=== PATIENT | female | born 1970 | race Caucasian/White ===

== ENCOUNTER 2019-07-15 20:15 | Inpatient (IN) | payer SELFPAY ==
--- NOTE | 2019-07-15 21:07 | PC.NURSE ---
Patient arrived to 89 via stretcher from [facility] at [place] with complaints of CP. Patient requesting nicotene patch. This nurse explained to patient that physician would be in to see her and we would obtain orders for her. She was last seen for Bronchitis on the with medications given. Patient has taken all medications today. Requesting something to eat and drink. Dr. Barrios notified as told to do so by Dr. Mckeon. Awaiting orders. Patient denies pain. Haven't had any pain for awhile...don't know why I can't go home. Will monitor.
[2019-07-15 21:26] VITALS: BP 184/100; PULSE 72; RESP 27; TEMP 36.6; O2SAT 100
[2019-07-15 21:27] VITALS: BMI 31.9
--- NOTE | 2019-07-15 21:29 | ECG_ITS ---
Measurements Intervals [place] Rate: 62 P: 33 LA: 157 QRS: 12 QRSD: 84 T: 14 QT: 390 QTc: 398 SINUS RHYTHM PROBABLE INFERIOR MYOCARDIAL INFARCTION [35 ms Q WAVE IN II/aVF], PROBABLY OLD No previous ECG available for comparison Electronically Signed On 07-16-2019 6:24:03 NET WASHER by Corinne Santa M.D. [id number]
[2019-07-15 22:02] LABS: Troponin(5th) Baseline 86 ng/mL (0-10)
[2019-07-15 22:10] LABS: NT Pro B Type Natriuretic Pept 150 pg/mL (0-125)
[2019-07-15] MEDS: acetaminophen 325 mg Tablet 650 MG PO (23:11)
--- NOTE | 2019-07-15 23:29 | ECG_ITS ---
Measurements Intervals [place] Rate: 66 P: 40 NM: 160 QRS: 8 QRSD: 84 T: 14 QT: 404 QTc: 424 SINUS RHYTHM POSSIBLE LEFT ATRIAL ENLARGEMENT [-0.1mV P WAVE IN V1/V2] PROBABLE INFERIOR MYOCARDIAL INFARCTION [35 ms Q WAVE IN II/aVF], PROBABLY OLD No previous ECG available for comparison Electronically Signed On 07-16-2019 6:36:37 ED TEACHER by Corinne Santa M.D. [id number]
--- NOTE | 2019-07-15 23:34 | PC.NURSE ---
Tylenol given for neck pain. Patient states, I always have trouble with my neck and the beds here aren't that comfortable...not like being home. No other complaints voiced at this time. This nurse did explain to patient that she would be NPO after midnight for lab work and possibly other things. Voices understanding. Will monitor.
--- NOTE | 2019-07-15 23:57 | PM.HP ---
Providers/Chief Complaint Admitting Physician: Carley Barrios MD Primary Care Provider: Denies having a primary care provider, sees whoever she can get in with Chief Complaint: chest pain History of Present Illness Mignon A Young is a 49 year old female who presented to [facility] with chief complaint of chest pain. She actually describes having issues with chest pain off and on for about a year now. First time she remembers it happening was in July of last year. When she has episodes of pain it it starts out as a tightness in the center of her chest that then becomes a sharp pain with an aching type pain down her left arm. It is usually associated with either her getting upset or with exertion. Most of the time if she rests the pain will go completely away and she feels better. Today she was making up a bed when the pain came on. She had shortness of breath, palpitations and dizziness. She denied any diaphoresis, nausea, vomiting, syncope. She denies any problems with lower extremity edema, orthopnea or PND. Despite trying to lie down the pain did not relent and was described as severe. After 30 to 40 minutes she decided to go into the emergency room. Initial troponin was negative. EKG showed some sinus tachycardia without acute ST segment changes. 2-hour troponin showed a positive delta and request was made to transfer her here for further evaluation. At the present time patient is chest pain-free. She did receive Lovenox and Nitropaste at outside facility as well as aspirin and sublingual nitroglycerin. Was relieved with the initial doses of nitroglycerin. She reported that she felt like she was about to pass out with this event today and that is what made her family seek medical evaluation for it. For the last few weeks patient has had intermittent subjective fevers, cough, runny nose and earache. She was seen by Dr. Roberto Mckeon a few days ago and prescribed prednisone, cetirizine and azithromycin. Review of Systems Const: Reports: fever (Subjective, last week, none last couple of days), body aches and fatigue; Denies: chills or change in weight Eyes: Denies: change in vision ENMT: Reports: ear pain and nasal congestion; Denies: throat pain Card: Reports: chest pain and palpitations; Denies: edema Resp: Reports: shortness of breath, productive cough and non-productive cough; Denies: pain on inspiration or coughing up blood GI: Reports: heartburn/indigestion and other (Significant belching); Denies: abdominal pain, nausea, vomiting, diarrhea, constipation or blood in stool : Denies: difficulty urinating or urinary frequency Musc: Denies: joint pain, redness or joint warmth Skin/Breast: Reports: rash (On face) and chronic lesion (Chronic red scaly lesions on legs and scalp as well as in intertriginous areas the past year); Denies: itching Neuro: Reports: numbness in extremities (Both legs when she has pain in her chest); Denies: headache or weakness in extremities Psych: Denies: anxiety or depression Zach/Lymph: Denies: easy bruising or easy bleeding Medications/Allergies Home Medications Medication Instructions Recorded Confirmed Last Taken Type azithromycin [Zithromax] See Rx Instructions .ROUTE .COMPLEX 07/15/19 07/15/19 07/15/19 History cetirizine [Zyrtec] 10 mg PO DAILY 07/15/19 07/15/19 07/15/19 History prednisone See Taper PO 07/15/19 07/15/19 History Allergies Allergy/AdvReac Type Severity Reaction Status Date / Time bacitracin Allergy Unknown Verified 07/15/19 20:55 [From Triple Antibiotic] cephalexin [From Keflex] Allergy Unknown Verified 07/15/19 20:53 neomycin Allergy Unknown Verified 07/15/19 20:55 [From Triple Antibiotic] polymyxin B Allergy Unknown Verified 07/15/19 20:55 [From Triple Antibiotic] Additional Medication Information Additional Medication Information: Medications received at outside facility include at 3 PM aspirin 324 mg, nitroglycerin x2 doses sublingual between 3 and 330 PM, a liter of saline, an inch of Nitropaste around 640 PM, as well as a dose of Lovenox at 1621 PFSH Acute PFSH: Medical History Scoliosis Surgical History History of tubal ligation Family History (Updated 07/16/19 @ 03:22 by Carley Barrios MD) Father CAD (coronary artery disease) She describes him having either an angiogram with angioplasty or something more invasive Cancer Lung cancer Mother Irregular heart rhythm Other Diabetes Social History Smoking and tobacco status: current every day smoker Alcohol intake: current Alcohol intake frequency: few times a week Female Reproductive History: : 2 Para: 2 Vitals/I&O/Wt Last Vital Signs Temp 97.9 F 07/15/19 21:26 Pulse 72 07/15/19 21:26 Resp 27 H 07/15/19 21:26 BP 184/100 07/15/19 21:26 Pulse Ox 100 07/15/19 21:26 07/15/19 07/15/19 07/16/19 14:59 22:59 06:59 Intake Total 222 / 222 Balance 222 / 222 Weight last 48 hrs Weight 87.175 kg Physical Exam Const: COMMON NORMALS: oriented x3 and alert HENMT: HEAD & SCALP: normocephalic and atraumatic Eye: COMMON NORMALS: PERRL and EOMs intact bilaterally Neck/C-Spine: COMMON NORMALS: supple Resp: COMMON NORMALS: normal respiratory effort, no use of accessory muscles and clear to auscultation bilaterally Cardio: COMMON NORMALS: regular rate, no gallops, no murmurs and no rub GI: COMMON NORMALS: normal to inspection, nondistended, normoactive bowel sounds, soft to palpation and non-tender : COMMON NORMALS: Yes external appearance normal Extremity: COMMON NORMALS: no clubbing, cyanosis or edema and no calf tenderness RIGHT LOWER EXTREMITY: Yes knee joint Right knee: Yes inspection (no erythema), Yes palpation (No warmth) and Yes ROM (Normal) Neuro: COMMON NORMALS: moves all extremities and no sensory deficits noted Psych: COMMON NORMALS: thought process normal and cooperative Skin: NARRATIVE SKIN EXAM: Patient with macular hyperpigmented/erythematous areas with scaling throughout her scalp. Has similar lesions on both lower extremities. She has hyperpigmented/erythematous macular lesions without any scaling in all intertriginous areas (both axilla, under her breast and in the groin). Her face is mildly erythematous and dry in a malar distribution but also extends up onto her forehead. Remainder of skin is also dry. Data Other Labs: From outside facility: White count 14,000, hemoglobin 15, hematocrit 45, platelets 318, 86% neutrophils, 10% lymphocytes INR 0.9, PTT 35.2, CRP is 8.7, d-dimer 0.33 Sodium 136, potassium 4.2, chloride 97, CO2 26, calcium 9.3, BUN/creatinine 12/0.9, glucose 117, total protein 7.6, albumin 4.4, total bilirubin 0.2, alkaline phosphatase 84, AST and ALT are 17 and 15 respectively, lipase is 32, magnesium 2.3 Initial fifth generation troponin was 7 with the 2-hour troponin up to 34 giving a delta of 27 A&P Assessment and plan (1) Chest pain: Suspicious for unstable angina by description Status: Acute Qualifiers: Chest pain type: precordial pain Qualified Code(s): R07.2 - Precordial pain Code(s): R07.9 - Chest pain, unspecified (2) Non-STEMI (non-ST elevated myocardial infarction): Without a known history of coronary artery disease Status: Acute Code(s): I21.4 - Non-ST elevation (NSTEMI) myocardial infarction (3) Hypertension: Does not carry a chronic diagnosis noted to be hypertensive at outside facility as well as on arrival here Status: Acute Qualifiers: Hypertension type: unspecified Qualified Code(s): I10 - Essential (primary) hypertension Code(s): I10 - Essential (primary) hypertension (4) Nicotine dependence, cigarettes, with other nicotine-induced disorders: Status: Chronic Code(s): F17.218 - Nicotine dependence, cigarettes, with other nicotine-induced disorders Additional A&P Information Other diagnoses: --Dermatitis with currently unclear etiology. I actually think there may be a couple of different types of processes going on though could all be related. Differential includes fungal infection, psoriatic or other autoimmune process, among others. Seems less likely to be contact the physician she recently saw was hoping that the steroids would help with these wounds. --Frequent belching. Has been recommended to have an EGD but has not had coverage to be able to do this. Could be related to potential cardiac etiology or related to reflux or other abnormality in the esophagus. Plan: Inpatient admission Continue serial cardiac enzymes Echocardiogram Depending on clinical course tonight will consider stress testing or cardiology consultation for consideration of arteriogram Will go on and cover with aspirin, statin, nitroglycerin Continue treatment dose Lovenox which was started at outside facility Check hemoglobin A1c and lipid panel Add PPI and simethicone Lotrisone cream to skin lesions Nicotine patch and encouraged to quit smoking Would benefit from some further work-up for skin abnormalities and GI symptoms but primary focus of this admission is cardiac in nature. This was discussed with the patient. Supportive care otherwise Full code Attestations Medical Necessity Statement*: Anticipated stay greater than 2 midnights in this patient with chest pain symptoms of the been going on intermittently for about a year and escalated on the day of admission. She has slight abnormality and troponins but a concerning story for unstable angina. She also has some other abnormalities noted during history and on exam suggesting possible chronic medical conditions that are not diagnosed. She does not have a primary care provider with whom she can follow-up with. She does have risk factors including smoking and family history. Plans are as noted above. Coding Level of Care Code Acute Trailer Technician for Isis Matos Diagnoses Chest pain R07.2 Chest pain type: precordial pain Non-STEMI (non-ST elevated myocardial infarction) I21.4 Hypertension I10 Hypertension type: unspecified Nicotine dependence, cigarettes, with other nicotine-induced disorders F17.218
[2019-07-16] VITALS (53 sets, daily range): BP systolic 118–158; BP diastolic 66–110; PULSE 56–90; RESP 10–27; TEMP 36.8–37.2; O2SAT 94–100
[2019-07-16 00:17] LABS: Troponin 5 2HR 100.1 ng/mL (0-10); Troponin 5 2HR Delta 14.1 ABS# (0-10)
--- NOTE | 2019-07-16 02:02 | USCV_ITS ---
Mignon Escobar Age: 49 Gender: F : 1970 Exam Date: 07/16/2019 06:11 Ordering Phys: Carley Barrios MD Technologist: Reina Vera Exam Location: [facility] Indication: NSTEMI BP: / HR: 74 Rhythm: Sinus Technical Quality: Adequate MEASUREMENTS (Male / Female) Normal Values 2D ECHO LV Diastolic Diameter PLAX 4.1 cm 4.2 - 5.9 / 3.9 - 5.3 cm LV Systolic Diameter PLAX 2.7 cm LV Chamber Size 2.4 cm IVS Diastolic Thickness 1.3 cm 0.6 - 1.0 / 0.6 - 0.9 cm IVS Systolic Thickness 1.8 cm LVPW Diastolic Thickness 1.3 cm 0.6 - 1.0 / 0.6 - 0.9 cm LVPW Systolic Thickness 2.0 cm RV Chamber Size 1.9 cm LVOT Diameter 2.0 cm LV Ejection Fraction 2D Teich 61.9 % LV Ejection Fraction MOD 2C 31.5 % LV Ejection Fraction 2C AL 40.9 % LA Diameter 3.4 cm LA Width 2.5 cm LA Height 4.1 cm RA Width 3.2 cm RA Height 4.1 cm Aorta at Sinotubular Diameter 3.0 cm M-MODE LV Diastolic Diameter MM 4.3 cm 4.2 - 5.9 / 3.9 - 5.3 cm LV Systolic Diameter MM 2.8 cm LV Ejection Fraction MM Teich 64.0 % IVS Diastolic Thickness MM 1.0 cm 0.6 - 1.0 / 0.6 - 0.9 cm IVS Systolic Thickness MM 1.6 cm LVPW Diastolic Thickness MM 1.5 cm 0.6 - 1.0 / 0.6 - 0.9 cm LVPW Systolic Thickness MM 2.0 cm RV Diastolic Diameter MM 1.3 cm Aortic Annulus Diameter 3.5 cm LA Ao Ratio MM 1.0 MV E Point Septal Separation 0.5 cm DOPPLER AV Peak Velocity 135.0 cm/s LVOT Peak Velocity 105.0 cm/s AV Area Cont Eq vti 3.4 cm squared AV Area Cont Eq pk 2.6 cm squared MV Area PHT 3.7 cm squared Mitral E to A Ratio 1.0 MV E' Velocity 8.0 cm/s Mitral E to MV E' Ratio 10.6 Mitral E to LV E' Lateral Ratio 11.5 Mitral E to LV E' Septal Ratio 9.8 TR Peak Velocity 161.2 cm/s TR Peak Gradient 10.4 mmHg TR Mean Velocity 115.2 cm/s TR Mean Gradient 6.2 mmHg TR Velocity Time Integral 51.9 cm TV Peak E Velocity 54.0 cm/s Right Atrial Pressure 3.0 mmHg Pulmonary Artery Systolic Pressu 13.4 mmHg PV Peak Velocity 71.0 cm/s RV Acceleration Time 0.1 s RV Ejection Time 0.4 s RV AcT/ET 0.3 FINDINGS Left Ventricle Normal left ventricular size, systolic function and wall thickness, with no regional wall motion abnormalities. Left ventricular ejection fraction is estimated at 65%. Normal diastolic function. Right Ventricle Normal right ventricular size and systolic function. Right ventricular systolic pressure 13.4 mmHg. Right Atrium Normal right atrial size. Left Atrium Normal left atrial size. Mitral Valve Structurally normal mitral valve. No mitral valve stenosis. No mitral valve regurgitation. Aortic Valve Structurally normal trileaflet aortic valve. No aortic valve stenosis. No aortic valve regurgitation. Tricuspid Valve Structurally normal tricuspid valve. No tricuspid valve stenosis. Trace tricuspid valve regurgitation. Pulmonic Valve Structurally normal pulmonic valve. No pulmonary valve stenosis. Trace pulmonary valve regurgitation. Pericardium No pericardial effusion. Aorta Normal size aortic root and proximal ascending aorta. CONCLUSIONS 1. Normal left ventricular size, systolic function and wall thickness, with no regional wall motion abnormalities. Left ventricular ejection fraction is estimated at 65%. Normal diastolic function. 2. Normal right ventricular size and systolic function. 3. Significant valvular abnormality. 4. Normal pulmonary artery pressure. 5. No prior similar studies to compare. Corinne Santa MD (Electronically Signed) Final Date: 16 July 2019 12:52 S
--- NOTE | 2019-07-16 03:11 | PC.NURSE ---
Dr. Barrios in to see patient. Will monitor.
[2019-07-16] MEDS: atorvastatin 40 mg Tablet PO ×2 (03:23→21:31)
[2019-07-16] MEDS: calcium carbonate 500 mg Chew Tablet 1000 MG PO (03:26)
--- NOTE | 2019-07-16 03:29 | ECG_ITS ---
Measurements Intervals [place] Rate: 54 P: 37 PA: 152 QRS: 16 QRSD: 85 T: 16 QT: 423 QTc: 404 SINUS BRADYCARDIA LOW QRS VOLTAGE IN PRECORDIAL LEADS [QRS DEFLECTION < 1.0 mV IN CHEST LEADS] Non specific T wave abnormality No previous ECG available for comparison Electronically Signed On 07-16-2019 6:34:20 ENVIRONMENTAL GEOLOGIST by Corinne Santa M.D. [id number]
--- NOTE | 2019-07-16 03:32 | PC.NURSE ---
Patient sitting up in bed. Lipitor given as ordered. Patient belching. Patient requesting something for her stomach. The doctor was suppose to order me something for my stomach or she told me she would. Tums 1000mg given for patient's belching. Patient also requesting a nicotene patch. Dr. Barrios notified. Non productive, tight cough noted. Patient states, You know...it quits when I have my cigarette. Spoke with patient in regard to smoking cessation. Just not ready yet. Will monitor.
[2019-07-16 04:47] LABS: Blood Urea Nitrogen 14 mg/dL (6-20); Calcium 9.1 mg/dL (8.5-10.5); Carbon Dioxide 25 mmol/L (22-29); Chloride 99 mmol/L (98-107); Glomerular Filtration Rate 89.7 mL/min (90-130); Glucose 77 mg/dL (65-115); Osmolality Calculated 281 mOsm/kg (285-295); Sodium 138 mmol/L (136-145)
[2019-07-16] MEDS: nitroglycerin 1 gm/inch oint Pkt 1 INCH TOPICAL ×2 (05:23→22:37)
[2019-07-16] MEDS: enoxaparin 100 mg/mL Syringe 90 MG SUBCUT (05:24)
[2019-07-16] MEDS: nicotine 21 mg Patch 1 PATCH TRANSDERMA (05:24)
[2019-07-16 05:29] LABS: Chol HDL Ratio 6.89 mg/dL (0.0-4.40); Cholesterol 193 mg/dL (0-200); HDL Cholesterol 28 mg/dL (60-100); LDL Cholesterol Calculated 113 mg/dL (50-129); LDL HDL Ratio 4.04 RATIO (0.00-3.22); Triglycerides 258 mg/dL (0-150)
--- NOTE | 2019-07-16 05:56 | P.CONIM_ITS ---
Providers/Reason For Consult Consulting Physican/Specialty*: Dr. Santa, Cardiology Reason for Consult*: NSTEMI Attending Physician: Michaela Mckeon MD Primary Care Provider: Aleksandra Rowley History of Present Illness History of Present Illness Mignon Escobar is a 49 year old female with PMHx of hypertension and chronic active smoking with at least 59-ccom-aick history of smoking presented for evaluation of chest discomfort. She does not have any known medical history and does not take any medications at baseline. Does not have a primary care physician. She complains of having intermittent episodes of chest discomfort on and off for the past year. The episodes are usually brought about by exertion or emotional stress and are relieved on resting within 10 to 15 minutes. Yesterday she was under stress and started doing cleaning, while changing sheets she started having retrosternal chest discomfort graded at 5-6 over 10 in intensity with radiation to her left upper arm. The pain did not resolve on laying down and persisted for about 30 minutes that is when she called her and brought to [facility] ER. She also had associated dizziness and shortness of breath and palpitation. She denied any nausea vomiting or syncopal episodes. She was given Lovenox and Nitropaste and subsequently transferred to [facility] for further evaluation. Baseline troponin T of 86 that increased to 100 and 6 hr troponin I of 263. EKG here showed sinus rhythm with with possible old inferior myocardial infarction. No prior EKG available for comparison and no changes noted on serial EKGs. Overnight she has had intermittent episodes of chest pressure but denies having any chest pain. At the time of examination she complains of headache and neck pain but denies having any chest pain. She does mention that she used to work at [employer] and currently is unemployed. She has been sick with subjective fever chills and nasal congestion for the last week. +sick contact. She recently was seen for URI and was started on azithromycin Zyrtec and prednisone. Review of Systems Const: Reports: fever (Subjective) Eyes: Denies: change in vision ENMT: Reports: nasal discharge and nasal congestion; Denies: ear discharge Card: Reports: chest pain and palpitations; Denies: edema, syncope, pre-syncope or shortness of breath on exertion Resp: Reports: shortness of breath; Denies: productive cough, non-productive cough or coughing up blood GI: Denies: abdominal pain, nausea, vomiting or blood in stool : Denies: painful urination or blood in urine Musc: Reports: neck pain; Denies: extremity pain or extremity swelling Skin/Breast: Denies: rash or changing lesion Neuro: Reports: headache and dizziness; Denies: weakness in extremities, vertigo or slurred speech Psych: Denies: anxiety, depression or irritability Endo: Denies: tired all the time or change in body appearance Zach/Lymph: Denies: easy bruising or easy bleeding All/Imm: Denies: throat swelling or tongue swelling Meds/Allergies Home Medications and Allergies Home Medications Medication Instructions Recorded Confirmed Type azithromycin [Zithromax] See Rx Instructions .ROUTE .COMPLEX 07/15/19 07/15/19 History cetirizine [Zyrtec] 10 mg PO DAILY 07/15/19 07/15/19 History prednisone See Taper PO 07/15/19 History Allergies Allergy/AdvReac Type Severity Reaction Status Date / Time bacitracin Allergy Unknown Verified 07/15/19 20:55 [From Triple Antibiotic] cephalexin [From Keflex] Allergy Unknown Verified 07/15/19 20:53 neomycin Allergy Unknown Verified 07/15/19 20:55 [From Triple Antibiotic] polymyxin B Allergy Unknown Verified 07/15/19 20:55 [From Triple Antibiotic] Current Medications Current Medications Generic Name Dose Route Start Last Admin Trade Name Freq PRN Reason Stop Dose Admin Acetaminophen 650 mg 07/15/19 21:26 07/15/19 23:11 Tylenol PO 650 mg Q6H PRN Administration Mild/Mod Pain Or Temp >/= 101 Atorvastatin Calcium 40 mg 07/16/19 02:00 07/16/19 03:23 Lipitor PO 40 mg BEDTIME MADI Administration Calcium Carbonate 1,000 mg 07/15/19 21:26 07/16/19 03:26 Tums PO 1,000 mg Q4H PRN Administration DYSPEPSI Enoxaparin Sodium 90 mg 07/16/19 05:00 07/16/19 05:24 Lovenox 1 mg/kg (90 mg) 90 mg SUBCUT Administration Q12H [facility] Nicotine 1 patch 07/16/19 03:40 07/16/19 05:24 Nicoderm 21 Mg Patch TRANSDERMA 1 patch DAILY MDAI Administration Nitroglycerin 1 inch 07/16/19 05:00 07/16/19 05:23 Nitro-Bid TOPICAL 1 inch Q6H MADI Administration PFSH Acute PFSH: Medical History Scoliosis Surgical History History of tubal ligation Family History Father CAD (coronary artery disease) She describes him having either an angiogram with angioplasty or something more invasive Cancer Lung cancer Mother Irregular heart rhythm Other Diabetes Social History Smoking and tobacco status: current every day smoker Alcohol intake: current Alcohol intake frequency: few times a week Female Reproductive History: : 2 Para: 2 Vitals/I&O/Wt Last Vital Signs Temp 98.3 F 07/16/19 04:00 Pulse 56 L 07/16/19 04:00 Resp 21 H 07/16/19 04:00 BP 157/79 07/16/19 04:00 Pulse Ox 100 07/16/19 04:00 07/15/19 07/15/19 07/16/19 14:59 22:59 06:59 Intake Total 222 / 222 Balance 222 / 222 Weight last 48 hrs Weight 196 lb 4.8 oz Weight 192 lb 3 oz Physical Exam Const: COMMON NORMALS: no apparent distress, oriented x3 and alert GENERAL APPEARANCE: cooperative, comfortable, well kempt and well hydrated HENMT: COMMON NORMALS: normocephalic, head/scalp atraumatic, hearing grossly normal bilaterally, external ears normal, external nose normal and moist oral mucous membranes HEAD & SCALP: normocephalic and atraumatic FACE & SINUS: normal facial exam NOSE: external nose normal EXTERNAL EAR: Yes external ears normal Eye: COMMON NORMALS: PERRL, EOMs intact bilaterally, conjunctivae normal and no scleral icterus GENERAL EYE: normal appearance of both eyes ALIGNMENT: Yes alignment normal EYELID: eyelids normal CONJUNCTIVA: Yes conjunctivae normal SCLERA: sclerae normal PUPIL: Yes PERRL Neck/C-Spine: COMMON NORMALS: no lymphadenopathy, supple, no meningeal signs, no JVD and thyroid normal THYROID: thyroid normal CAROTIDS: Yes normal carotid upstroke CERVICAL SPINE: Yes cervical ROM normal Lymph: LYMPHATIC: no lymphadenopathy noted Chest: COMMONS NORMALS: inspection of chest normal and palpation of chest normal CHEST: Yes symmetrical chest wall rise, No mass, No tenderness, No scars and No rash BREAST/AXILLA INSPECTION: Yes normal inspection of the axillae Resp: COMMON NORMALS: clear to auscultation bilaterally and percussion normal AUSCULTATION: clear to auscultation bilaterally, no crackles, no rales, no rhonchi, no wheezes and vesicular breath sounds PERCUSSION: percussion normal Cardio: COMMON NORMALS: no JVD, regular rate, regular rhythm, S1 normal heart sound, S2 normal heart sound and peripheral pulses 2+ throughout PALPATION: normal PMI RATE: regular rate RHYTHM: regular rhythm HEART SOUNDS: S1 normal, S2 normal, no click, no gallops and no murmurs BRUITS: no abdominal aortic bruits, no carotid bruits, no femoral bruits and no renal bruits PERIPHERAL PULSES: pulses 2+ throughout, radial pulses present, femoral pulses present, posterior tibial pulses present and dorsalis pedis pulses present GI: COMMON NORMALS: soft to palpation and no hepatosplenomegaly AUSCULTATION: Yes normoactive bowel sounds PALPATION: Yes soft, No tender, No guarding, No rigid, Yes no hepatosplenomegaly, No pulsatile mass and No ascites present Extremity: GENERAL: No calf tenderness, No clubbing, No cyanosis, Yes edema and No pallor Neuro: COMMON NORMALS: oriented x3, CN's II-XII intact bilaterally, no focal motor deficits, no sensory deficits noted and gait normal SENSORIUM/ORIENTATION: Yes alert MENINGEAL SIGNS: Yes no meningeal signs Psych: COMMON NORMALS: thought process normal and speech normal APPEARANCE: Yes well kempt SPEECH: Yes normal speech MOOD & AFFECT: Yes euthymic mood THOUGHT PROCESS: normal thought process THOUGHT CONTENT: Yes normal thought content Skin: HAIR: normal NAILS: normal and no clubbing Data Labs: Other Labs: Laboratory Tests 07/15/19 07/15/19 07/15/19 21:43 21:43 23:35 GFR Calculation Calculated Osmolal ity Troponin I 6 Hour Troponin I Hi Sens Del Troponin T Baselin e 86 H Troponin T 120 Min cowlitz 100.1 H Delta Troponin T 14.1 H* NT-Pro-B Natriuret Pep 150 H Triglycerides Cholesterol LDL Cholesterol, C alc HDL Cholesterol 07/16/19 07/16/19 07/16/19 03:34 03:34 03:34 GFR Calculation 89.7 L Calculated Osmolal ity 281 L Troponin I 6 Hour 263.0 H Troponin I Hi Sens Del 177.0 H* Troponin T Baselin e Troponin T 120 Min [place] Delta Troponin T NT-Pro-B Natriuret Pep Triglycerides 258 H Cholesterol 193 LDL Cholesterol, C alc 113 HDL Cholesterol 28 L A&P Assessment and plan (1) Non-STEMI (non-ST elevated myocardial infarction): Patient has CAD risk factors of smoking and family history of CAD. -She received therapeutic Lovenox and was given aspirin 325 mg yesterday. She was started on Lipitor. -The case was discussed with Dr. Allen and plan is to proceed with coronary angiogram this morning. -Continue aspirin 325 mg and load with Plavix 600 mg. -follow-up on echocardiogram. Status: Acute Code(s): I21.4 - Non-ST elevation (NSTEMI) myocardial infarction (2) Hypertension: Blood pressure elevated on arrival here. No prior diagnosis of hypertension but patient has not seen a primary care physician for a long time. Status: Acute Qualifiers: Hypertension type: unspecified Qualified Code(s): I10 - Essential (primary) hypertension Code(s): I10 - Essential (primary) hypertension (3) Nicotine dependence, cigarettes, with other nicotine-induced disorders: Chronic active smoker. Advised on smoking cessation. Status: Chronic Code(s): F17.218 - Nicotine dependence, cigarettes, with other nicotine-induced disorders Consult Attestations Medical Necessity Statement: Patient needs hospital stay for management of non-ST elevation RI. 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
[2019-07-16 06:07] LABS: Estmated Average Glucose 105; Hemoglobin A1C 5.3 % (4.0-6.0)
--- NOTE | 2019-07-16 06:14 | PC.NURSE ---
Echocardiogram being performed at bedside. Will monitor.
--- NOTE | 2019-07-16 07:44 | P.PN_ITS ---
Subjective Subjective: Interval history: Chart reviewed, labs noted, delta (troponins) of 177. Echo done earlier this AM, pending report. NPO earlier for cath. Patient seen after cath, had stenting of proximal LAD. TR band in place. Had an episode of pre-syncope earlier upon her return, vitals stable. Medications: Reviewed: Yes Medication Review Details: Active Medications Generic Name Dose Route Start Last Admin Trade Name Freq PRN Reason Stop Dose Admin Acetaminophen 650 mg 07/15/19 21:26 07/15/19 23:11 Tylenol PO 650 mg Q6H PRN Administration Mild/Mod Pain Or Temp >/= 101 Al Hydrox/Mg [place] x/Simethicone 30 ml 07/16/19 03:36 Maalox PO Q4H PRN INDIGESTION Aspirin 325 mg 07/16/19 09:00 Aspirin Ec PO DAILY [facility] Atorvastatin Calci um 40 mg 07/16/19 02:00 07/16/19 03:23 Lipitor PO 40 mg BEDTIME [facility] Administration Azithromycin 250 mg 07/16/19 09:00 Zithromax PO 07/17/19 09:01 DAILY [facility] Protocol Betamethasone/Clot rimazole 1 applic 07/16/19 09:00 Lotrisone TOPICAL TID [facility] Bisacodyl 10 mg 07/15/19 21:26 Dulcolax PO DAILY PRN CONSTIPATION Calcium Carbonate 1,000 mg 07/15/19 21:26 07/16/19 03:26 Tums PO 1,000 mg Q4H PRN Administration DYSPEPSI Cetirizine HCl 10 mg 07/16/19 09:00 Zyrtec PO DAILY [facility] Clopidogrel Bisulf ate 75 mg 07/16/19 09:00 Plavix PO DAILY [facility] Enoxaparin Sodium 90 mg 07/16/19 05:00 07/16/19 05:24 Lovenox 1 mg/kg (90 mg) 90 mg SUBCUT Administration Q12H [facility] Nicotine 1 patch 07/16/19 03:40 07/16/19 05:24 Nicoderm 21 Mg P atch TRANSDERMA 1 patch DAILY [facility] Administration Nitroglycerin 0.4 mg 07/15/19 21:26 Nitrostat SUBLINGUAL Q5M PRN CHEST PAIN Nitroglycerin 1 inch 07/16/19 05:00 07/16/19 05:23 Nitro-Bid TOPICAL 1 inch Q6H MADI Administration Ondansetron HCl 4 mg 07/15/19 21:26 Zofran IVP Q8H PRN vomiting, or N/V if npo Pantoprazole Sodiu m 40 mg 07/16/19 09:00 Protonix PO DAILY MADI bacitracin [From Triple Antibiotic] Allergy (Verified 07/15/19 20:55) Unknown cephalexin [From Keflex] Allergy (Verified 07/15/19 20:53) Unknown neomycin [From Triple Antibiotic] Allergy (Verified 07/15/19 20:55) Unknown polymyxin B [From Triple Antibiotic] Allergy (Verified 07/15/19 20:55) Unknown Vitals/I&O/Wt Last Vital Signs Temp 98.3 F 07/16/19 04:00 Pulse 87 07/16/19 07:39 Resp 21 H 07/16/19 07:39 BP 151/76 07/16/19 07:39 Pulse Ox 99 07/16/19 07:39 07/15/19 07/16/19 07/16/19 22:59 06:59 14:59 Intake Total 222 / 222 Balance 222 / 222 Weight last 48 hrs Weight 89.04 kg Weight 87.175 kg Physical Exam Const: COMMON NORMALS: no apparent distress and oriented x3 GENERAL APPEARANCE: cooperative and comfortable NUTRITIONAL APPEARANCE: obese ORIENTATION/CONSCIOUSNESS: Yes awake HENMT: COMMON NORMALS: normocephalic, head/scalp atraumatic, hearing grossly normal bilaterally and moist oral mucous membranes HEAD & SCALP: normocephalic and atraumatic Eye: COMMON NORMALS: PERRL, EOMs intact bilaterally and conjunctivae normal CONJUNCTIVA: Yes conjunctivae normal PUPIL: Yes PERRL Neck/C-Spine: COMMON NORMALS: full ROM GENERAL: Yes normal visual inspection and Yes trachea midline Resp: COMMON NORMALS: normal respiratory effort, no retractions, no use of accessory muscles and clear to auscultation bilaterally EFFORT & INSPECTION: Yes able to speak in complete sentences, Yes symmetric chest movement and No tachypneic AUSCULTATION: clear to auscultation bilaterally Cardio: COMMON NORMALS: regular rate, regular rhythm, S1 normal heart sound, S2 normal heart sound and no murmurs RATE: regular rate RHYTHM: regular rhythm HEART SOUNDS: S1 normal and S2 normal GI: COMMON NORMALS: normal to inspection, nondistended, normoactive bowel sounds, soft to palpation and non-tender INSPECTION: Yes central obesity PALPATION: Yes soft Extremity: COMMON NORMALS: normal to inspection, full ROM and no clubbing, cyanosis or edema; negative for no pedal edema OTHER: TR band in place on RUE Neuro: COMMON NORMALS: oriented x3, moves all extremities, no focal motor deficits and no sensory deficits noted Psych: COMMON NORMALS: mental status grossly normal, thought process normal, cooperative, affect normal and speech normal SPEECH: Yes normal speech THOUGHT PROCESS: normal thought process Skin: COMMON NORMALS: no jaundice, no petechiae and no mottling OTHER: psoriatic lesions on bilateral legs, elbows, face with noted dry flaky skin Data : 07/16/19 03:34 07/16/19 03:34 A&P Assessment and plan (1) Non-STEMI (non-ST elevated myocardial infarction): -presented as exertional chest pain; risk factors for CAD are HTN, chronic smoker, obesity, +FHx -noted elevated troponins with positive delta of 177 -no acute ischemic changes noted on ECG -telemetry monitoring -ROBSON -on Plavix, statin, ASA, therapeutic Lovenox -Cardiology consult by Dr. Santa appreciated -noted lipid panel, A1c -Echo: EF=60%, no RWMA, trace TR, trace [place] -NPO for cath; had stenting of proximal LAD Status: Acute Code(s): I21.4 - Non-ST elevation (NSTEMI) myocardial infarction (2) Hypertension: -hypertensive overnight; BP better this AM -continue to monitor vital signs -will likely need oral antihypertensives added, none per home med list. Will add low dose BB Status: Acute Qualifiers: Hypertension type: unspecified Qualified Code(s): I10 - Essential (primary) hypertension Code(s): I10 - Essential (primary) hypertension (3) Nicotine dependence, cigarettes, with other nicotine-induced disorders: -chronic smoker -nicotine patch Status: Chronic Code(s): F17.218 - Nicotine dependence, cigarettes, with other nicotine-induced disorders Additional A&P Information -Obesity: BMI-33 kg/m2 -hx of psoriasis with noted dermatitis -recently treated for URI with course of prednisone and Azithromycin -GI ppx with PPI -DVT ppx not needed as on therapeutic Lovenox -Dispo: home -Code status: FULL code Attestations Medical Necessity Statement*: Patient requires hospitalization for continued management of NSTEMI, s/p cath with stenting of proximal LAD. Time Spent in Patient Care: Greater than 35 minutes (>than 50% of time spent in counselling and/or direct pt care on unit) . Coding Level of Care Code Acute Trimming Operator for g Fwd Exam Comprehensive Diagnoses Non-STEMI (non-ST elevated myocardial infarction) I21.4 Hypertension I10 Hypertension type: unspecified Nicotine dependence, cigarettes, with other nicotine-induced disorders F17.218
--- NOTE | 2019-07-16 08:23 | XACV_ITS ---
Exam Room: [facility] Ht: 165 cm Wt: 89 kg BSA: 2.05 m2 Gender: Female : 1970 Any Known Allergies: Other Exam Priority: Routine Procedure(s): Procedure Description: Diagnostic procedure Procedure Description: PCI procedure Procedure Description: Left Heart Catheterization Procedure Description: Drug Eluting Coronary Stent Procedure Description: PTCA Diagnostic Cath Status: Elective PCI Status: Urgent PCI Indication: NSTE - ACS Interventional Findings Successful PCI to prox LAD. Lesion was prepared with 2.5 x 12 mm AB TREK balloon, followed by deployment of HARPER INTEGRITY 3.0 x 12 mm stent posted at high MAXIMUS of 14 mm. Stent was then post-dilated with serial dilatation of NC Quantum3.0 x 8 at 14ATM in its entire length to ensure proper approximation. Excellent angiographic result with GUEVARA-3 flow was achieved. . Conclusions #1 Left main is normal #2 LAD has proximal 80% stenosis, mid to distal LAD is small caliber and size vessel, #3 LCx is normal #4 RCA has 50% mid stenosis. Recommendations 1-Return to inpatient for close monitoring and routine cath care2-Risk factor modification for secondary prevention3-Statin and aspirin 81 mg life-long, if tolerated4-Patient was pre-loaded with 600 mg of Plavix, continue Plavix 75mg p.o. daily for at least one year. We will assess at the end of one year again to continue if further or not5-Continue optimal medical management6-Follow up with Dr. Santa in four weeks and your primary care in 10 days. Diagnostic RX Recommendation: PCI w/o planned CABG Clinical Evaluation EBL: 5mL-10mL Procedural Details Procedure Consent Obtained. Admit Source: In Patient. Pre-Procedure Time Out. Identified patient by full name and date of as verbalized by the patient/guarantor. Does the consent match the physician's order: Yes. Accurate & Complete Informed Consent: Yes. Inpatient/Outpatient History & Physical on Chart: Yes. If H&P is completed, is and addenduem needed: N/A; If yes, is the addendum complete: N/A. Visualize and Verify Site with Patient/Guarantor: N/A. Relevant Radiology Images available: N/A. Pre-op teaching completed and patient verbalized understanding. The risks, benefits, and alternatives of sedation and/or procedure were discussed by physician. The patient agrees to continue. Procedure started. Correct patient, site and procedure confirmed by cath team. PERRLA. Strong, equal hand visor installer bilaterally. Lungs clear x 5 lobes. IV Site on Arrival: 20 gauge in the right forearm. IV Fluids: 0.9% NaCl at KVO. 100 mL infused prior to cleaning laborer. Pre Procedural Pulses: bilateral radial was 3+. Oxygen started at 2liters/min via nasal canula. bilateral groins was prepped with chloroprep then draped in the usual sterile fashion. right radial was prepped with chloroprep then draped in the usual sterile fashion. Physician notified. Baseline sample Acquired. HR: 73 BPM. Physician arrived. Physician scrubbed in. Immediate Pre-Procedure Time Out. Correct Patient: Yes; Correct Procedure: Yes; Correct Site: Yes; Correct Patient Position: Yes; Correct Supplies: Yes; Dried Flammable Prep: Yes; Blood Products Available: N/A;. Lidocaine 1% infiltrated to the right radial. Arterial access obtained. A 5 kazakh TIG catheter in over wire. family not available. Multiple views taken of left coronary artery. Catheter redirected to the RCA. Multiple views taken of right coronary artery. Catheter out. 6 kazakh XB 3 guide catheter was inserted over the wire. [place] guidewire was advanced through the guide catheter to lesion in the prox LAD. wire out. Inflation number : 1 A AB TREK 2.50X12 RX BALLOON was prepped and advanced across the Prox LAD , then inflated to 12 MAXIMUS for 0:28 seconds. Inflation number: 2 The AB TREK 2.50X12 RX BALLOON was reinflated across the Prox LAD, to 14 MAXIMUS for 0:17 seconds. Balloon out. Inflation Number : 3 A DAYANNA Lee HARPER 3.0X12 DENISE -Lot Number# [id number] was prepped and advanced across the Prox LAD. The stent was deployed at 16 MAXIMUS for 0:27 seconds. Inflation number : 1 A DAYANNA ORTIZ EUPHORA RX [id number] BALLOON was prepped and advanced across the Prox LAD1 , then inflated to 14 MAXIMUS for 0:22 seconds. Stent balloon out over wire. Wire out. checking results. exchange wire inserted. Catheter removed over the exchange wire. wire out. TR band placed. Hemostasis obtained. Post Procedure: Pulses reassessed and unchanged. PERRLA. Strong, equal hand visor installer bilaterally. Current diagnosis: NSTEMI. No VTE prophylaxis required. Contrast Material : Omnipaque 152 ml. Contrast type used: Omnipaque 300 mgI/mL, 500 mL bottle. A TR Band was successful obtaining hemostatsis at the Right Radial artery insertion site. [facility] Clinical Fraility Score: 3: Managing Well. Generator Worker Indications: ACS <= 24 hours. Chest Pain Symptom Assessment: Typical Angina Symptoms. Cardiovascular Instability: No. PCI Indication: NSTE. Post-op diagnosis: Stent to proximal LAD significant stenosis. Medication's Wasted: Heparin = 1000 units. Medication's Wasted: Lidocaine 1% = 15 mL. Medication's Wasted: Nitro = 49.8 mg. Total IV fluids: 200 mL. Complications: none. Estimated blood loss: 5mL-10mL. Procedure completed. Patient transferred by wheelchair to 1st floor. Vital chart was stopped. Site: Right Radial artery Sheath Size: 6 Fr Hemostasis Method: TR Band Hemostasis Success: Successful Procedure Medications Start: 9:35 AM Stop: 9:35 AM Medication: Fentanyl Amount: 50 mcg Start: 9:46 AM Stop: 9:46 AM Medication: Fentanyl Amount: 50 mcg Route: I.V. Start: 9:46 AM Stop: 9:46 AM Medication: Versed Amount: 1 mg Route: I.V. Start: 9:53 AM Stop: :53 AM Medication: Nitrogylcerin Amount: 200 mcg Route: I.A. Start: 10:03 AM Stop: 10:03 AM Medication: Aggrastat 12.5 mg/250 mL Amount: 45 ml Route: I.V. bolus Start: 10:03 AM Stop: 10:03 AM Medication: Aggrastat 12.5 mg/250 mL Amount: 16.2 ml/hr Route: I.V. drip Start: 10:04 AM Stop: 10:04 AM Medication: Versed Amount: 1 mg Route: I.V. I, the attending physician, have reviewed and verified all procedure medications. Yes, all medications given per verbal order History/Risk Factors Hypertension: Yes Dyslipidemia: No Peripheral Arterial Disease (PAD): No Myocardial Infarction (MN): No Obesity: No Renal Disease: No Tobacco Use: Current/Recent(w/in 1 year) Prior Interventions PCI: No CABG: No Valve Surgery: No Report Signatures Finalized by:Ryan Allen MD on 07/28/2019 7:00:52 PM
[2019-07-16] MEDS: azithromycin 250 mg Tablet PO (08:50)
[2019-07-16] MEDS: aspirin 325 mg EC Tablet PO (08:51)
[2019-07-16] MEDS: pantoprazole DR 40 mg Tablet PO (08:51)
[2019-07-16] MEDS: acetaminophen 325 mg Tablet 650 MG PO ×2 (08:51→15:03)
[2019-07-16] MEDS: diphenhydrAMINE 50 mg Capsule PO (08:51)
[2019-07-16] MEDS: cetirizine 10 mg Tablet PO (08:51)
[2019-07-16] MEDS: clopidogrel 300 mg Tablet 600 MG PO (08:51)
[2019-07-16] MEDS: sodium chloride 0.9% 1,000 ML 100 ML IV (08:59)
[2019-07-16 09:00] LABS: Basophils % 0.2 %; Eosinophils % 0.3 %; Hematocrit 41.4 % (37.0-47.0); Hemoglobin 13.5 g/dL (11.5-15.3); Lymphocytes # 3.4 10^3/uL (0.8-4.8); Lymphocytes % 28.2 %; Mean Corpuscular HGB Conc 32.6 g/dL (30.0-36.0); Mean Corpuscular Hemoglobin 27.4 pg (28.0-34.0); Mean Corpuscular Volume 84.1 fL (81-99); Mean Platelet Volume 9.8 fL (7.4-10.4); Monocytes # 1.2 10^3/uL (0.2-0.9); Neutrophils # 7.2 10^3/uL (1.8-7.7); Neutrophils % 60.9 %; Nucleated Red Blood Cells % 0 %; Platelet Count 329 10^3/cmm (130-400); Red Blood Count 4.92 10^6/uL (4.1-5.3); Red Cell Distribution Width 13.7 % (12.1-15.1); White Blood Count 11.9 10^3/uL (4.0-10.0)
--- NOTE | 2019-07-16 09:26 | PM.CONSULT ---
Providers/Reason For Consult Consulting Physican/Specialty*: Interventional cardiology Reason for Consult*: Non-ST elevation MO and pre-catheterization/PCI assessment Attending Physician: Michaela Mckeon MD Primary Care Provider: Aleksandra Rowley History of Present Illness History of Present Illness Mignon Escobar is a 49 year old female past medical history significant for continuous [id number] of tobacco abuse, being overweight, family history of heart disease in father and mother who works for [employer] started noticing off-and-on chest pain on moderate exertion and at emotional stress radiating to back in the neck along with shortness of breath nearly a year ago. Patient did not pay much attention according to her it has worsened over the last few weeks to few days before this event. Yesterday she started noticing continuous chest pain staying for long period of time longest she had was more than 30 minutes therefore she decided to go to [facility]. Due to high suspicion of acute coronary syndrome and abnormal cardiac markers she was given Lovenox and transferred to [facility]. Generation 5 troponin increased from 80-200 confirming the non-ST elevation MO. Patient was loaded with Plavix and treated as per ACS protocol. Dr. Santa one of my cardiology colleagues was consulted this morning who saw the patient and recommended coronary angiogram which I concur. I personally spoke and examined the patient by bedside and spoke to her over speaker phone explained them in detail regarding coronary angiogram/PCI or possible need of emergent CABG in case of complication. I also explained in detail to her and herself all risk benefit and alternative for the procedure. Patient would like to proceed with coronary angiogram/PCI if indicated now. Review of Systems Const: Reports: fever (Subjective), body aches and fatigue; Denies: chills or change in weight Eyes: Denies: change in vision ENMT: Reports: ear pain, nasal discharge and nasal congestion; Denies: throat pain or ear discharge Card: Reports: chest pain and palpitations; Denies: edema, syncope, pre-syncope or shortness of breath on exertion Resp: Reports: shortness of breath; Denies: productive cough, non-productive cough, pain on inspiration or coughing up blood GI: Reports: heartburn/indigestion and other (Significant belching); Denies: abdominal pain, nausea, vomiting, diarrhea, constipation or blood in stool : Denies: difficulty urinating, painful urination, urinary frequency or blood in urine Musc: Reports: neck pain; Denies: extremity pain, extremity swelling, joint pain, redness or joint warmth Skin/Breast: Reports: chronic lesion (Chronic red scaly lesions on legs and scalp as well as in intertriginous areas the past year); Denies: rash, itching or changing lesion Neuro: Reports: headache, numbness in extremities (Both legs when she has pain in her chest) and dizziness; Denies: weakness in extremities, vertigo or slurred speech Psych: Denies: anxiety, depression or irritability Endo: Denies: tired all the time or change in body appearance Zach/Lymph: Denies: easy bruising or easy bleeding All/Imm: Denies: throat swelling or tongue swelling Meds/Allergies Home Medications and Allergies Home Medications Medication Instructions Recorded Confirmed Type azithromycin [Zithromax] See Rx Instructions .ROUTE .COMPLEX 07/15/19 07/15/19 History cetirizine [Zyrtec] 10 mg PO DAILY 07/15/19 07/15/19 History prednisone See Taper PO 07/15/19 History Allergies Allergy/AdvReac Type Severity Reaction Status Date / Time bacitracin Allergy Unknown Verified 07/15/19 20:55 [From Triple Antibiotic] cephalexin [From Keflex] Allergy Unknown Verified 07/15/19 20:53 neomycin Allergy Unknown Verified 07/15/19 20:55 [From Triple Antibiotic] polymyxin B Allergy Unknown Verified 07/15/19 20:55 [From Triple Antibiotic] Current Medications Current Medications Generic Name Dose Route Start Last Admin Trade Name Freq PRN Reason Stop Dose Admin Acetaminophen 650 mg 07/15/19 21:26 07/16/19 08:51 Tylenol PO 650 mg Q6H PRN Administration Mild/Mod Pain Or Temp >/= 101 Aspirin 325 mg 07/16/19 09:00 07/16/19 08:51 Aspirin Ec PO 325 mg DAILY MADI Administration Atorvastatin Calcium 40 mg 07/16/19 02:00 07/16/19 03:23 Lipitor PO 40 mg BEDTIME MADI Administration Azithromycin 250 mg 07/16/19 09:00 07/16/19 08:50 Zithromax PO 07/17/19 09:01 250 mg DAILY MADI Administration Protocol Betamethasone/Clotrimazole 1 applic 07/16/19 09:00 07/16/19 09:02 Lotrisone TOPICAL Not Given TID [facility] Calcium Carbonate 1,000 mg 07/15/19 21:26 07/16/19 03:26 Tums PO 1,000 mg Q4H PRN Administration DYSPEPSI Cetirizine HCl 10 mg 07/16/19 09:00 07/16/19 08:51 Zyrtec PO 10 mg DAILY [facility] Administration Clopidogrel Bisulfate 75 mg 07/16/19 09:00 07/16/19 09:02 Plavix PO Not Given DAILY [facility] Enoxaparin Sodium 90 mg 07/16/19 05:00 07/16/19 05:24 Lovenox 1 mg/kg (90 mg) 90 mg SUBCUT Administration Q12H [facility] Sodium Chloride 1,000 mls @ 100 mls/hr 07/16/19 08:23 07/16/19 08:59 Sodium Chloride 0.9% IV 07/16/19 18:22 100 mls/hr .Q10H ONE Administration Nicotine 1 patch 07/16/19 03:40 07/16/19 05:24 Nicoderm 21 Mg Patch TRANSDERMA 1 patch DAILY [facility] Administration Nitroglycerin 1 inch 07/16/19 05:00 07/16/19 05:23 Nitro-Bid TOPICAL 1 inch Q6H [facility] Administration Pantoprazole Sodium 40 mg 07/16/19 09:00 07/16/19 08:51 Protonix PO 40 mg DAILY [facility] Administration Additional Medication Information Active Medications Generic Name Dose Route Start Last Admin Trade Name Freq PRN Reason Stop Dose Admin Acetaminophen 650 mg 07/15/19 21:26 07/15/19 23:11 Tylenol PO 650 mg Q6H PRN Administration Mild/Mod Pain Or Temp >/= 101 Al Hydrox/Mg Hydrox/Simethicone 30 ml 07/16/19 03:36 Maalox PO Q4H PRN INDIGESTION Aspirin 325 mg 07/16/19 09:00 Aspirin Ec PO DAILY [facility] Atorvastatin Calcium 40 mg 07/16/19 02:00 07/16/19 03:23 Lipitor PO 40 mg BEDTIME [facility] Administration Azithromycin 250 mg 07/16/19 09:00 Zithromax PO 07/17/19 09:01 DAILY [facility] Protocol Betamethasone/Clotrimazole 1 applic 07/16/19 09:00 Lotrisone TOPICAL TID MADI Bisacodyl 10 mg 07/15/19 21:26 Dulcolax PO DAILY PRN CONSTIPATION Calcium Carbonate 1,000 mg 07/15/19 21:26 07/16/19 03:26 Tums PO 1,000 mg Q4H PRN Administration DYSPEPSI Cetirizine HCl 10 mg 07/16/19 09:00 Zyrtec PO DAILY [facility] Clopidogrel Bisulfate 75 mg 07/16/19 09:00 Plavix PO DAILY [facility] Enoxaparin Sodium 90 mg 07/16/19 05:00 07/16/19 05:24 Lovenox 1 mg/kg (90 mg) 90 mg SUBCUT Administration Q12H MADI Nicotine 1 patch 07/16/19 03:40 07/16/19 05:24 Nicoderm 21 Mg Patch TRANSDERMA 1 patch DAILY MADI Administration Nitroglycerin 0.4 mg 07/15/19 21:26 Nitrostat SUBLINGUAL Q5M PRN CHEST PAIN Nitroglycerin 1 inch 07/16/19 05:00 07/16/19 05:23 Nitro-Bid TOPICAL 1 inch Q6H MADI Administration Ondansetron HCl 4 mg 07/15/19 21:26 Zofran IVP Q8H PRN vomiting, or N/V if npo Pantoprazole Sodium 40 mg 07/16/19 09:00 Protonix PO DAILY MADI bacitracin [From Triple Antibiotic] Allergy (Verified 07/15/19 20:55) Unknown cephalexin [From Keflex] Allergy (Verified 07/15/19 20:53) Unknown neomycin [From Triple Antibiotic] Allergy (Verified 07/15/19 20:55) Unknown polymyxin B [From Triple Antibiotic] Allergy (Verified 07/15/19 20:55) Unknown PFSH Acute PFSH: Family History Father CAD (coronary artery disease) She describes him having either an angiogram with angioplasty or something more invasive Cancer Lung cancer Mother Irregular heart rhythm Other Diabetes Social History Smoking and tobacco status: current every day smoker Alcohol intake: current Alcohol intake frequency: few times a week Female Reproductive History: : 2 Para: 2 Vitals/I&O/Wt Last Vital Signs Temp 98.3 F 07/16/19 04:00 Pulse 87 07/16/19 07:39 Resp 21 H 07/16/19 07:39 BP 151/76 07/16/19 07:39 Pulse Ox 99 07/16/19 07:39 07/15/19 07/16/19 07/16/19 22:59 06:59 14:59 Intake Total 222 / 222 Balance 222 / 222 Weight last 48 hrs Weight 196 lb 4.8 oz Weight 192 lb 3 oz Physical Exam Narrative: EXAM NARRATIVE: GENERAL: Patient is alert, awake and oriented x3. NECK: No jugular vein distension. HEENT: No cyanosis. No icterus. No pallor. HEART: Regular S1 and S2. No murmur, rub or gallop. LUNGS: Clear to auscultate bilaterally. ABDOMEN: Soft, nontender and nondistended. Positive bowel sounds. No guarding, rebound or tenderness. CENTRAL NERVOUS SYSTEM: Grossly nonfocal. EXTREMITIES: Lower extremities without edema bilaterally. A&P Assessment and plan (1) Non-STEMI (non-ST elevated myocardial infarction): Patient has been treated as per ACS protocol. We will proceed with coronary angiogram and PCI if indicated. Continue aspirin statin Plavix beta-haley. Echocardiogram to assess LV function. Further plan will be advised as per progress of the patient. Status: Acute Code(s): I21.4 - Non-ST elevation (NSTEMI) myocardial infarction (2) Hypertension: Continue current regimen. Status: Acute Qualifiers: Hypertension type: unspecified Qualified Code(s): I10 - Essential (primary) hypertension Code(s): I10 - Essential (primary) hypertension (3) Nicotine dependence, cigarettes, with other nicotine-induced disorders: Discussed and advised quitting smoking. Status: Chronic Code(s): F17.218 - Nicotine dependence, cigarettes, with other nicotine-induced disorders Consult Attestations Medical Necessity Statement: I am expecting her stay to cross more than 2 midnights. 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
--- NOTE | 2019-07-16 11:19 | PC.NURSE ---
Addendum entered by Sharon Hale RN 07/17/19 01:27: Medication not stopped on Jul until 01:27 07/16/[address] Morales written note on order. Medicine not given after turned off at 1105 on 07/15/19. 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 medication not scanned on JUL. medication was stopped per Dr. Allen order at 1105.
[2019-07-16 12:35] LABS: Glucose Point of Care 142 mg/dL (70-110)
[2019-07-16] MEDS: clotrimazole-betamethasone cream 15gm 1 APPLIC TOPICAL ×2 (15:03→21:31)
[2019-07-16] MEDS: enoxaparin 40 mg/0.4 mL Syringe SUBCUT (17:29)
[2019-07-16] MEDS: metoprolol tartrate 25 mg Tablet PO (17:29)
[2019-07-17] VITALS: BP 129/89; BP 137/87; PULSE 69; PULSE 71; RESP 19; RESP 21; TEMP 36.8; O2SAT 97
[2019-07-17 00:30] VITALS: BP 137/87; PULSE 67; RESP 17; O2SAT 97
[2019-07-17 01:30] VITALS: BP 150/102; PULSE 71; RESP 19; O2SAT 98
[2019-07-17 03:49] LABS: Basophils % 0.3 %; Eosinophils # 0.1 10^3/uL (0.0-0.8); Eosinophils % 1.3 %; Hematocrit 39.5 % (37.0-47.0); Hemoglobin 12.5 g/dL (11.5-15.3); Lymphocytes # 2.7 10^3/uL (0.8-4.8); Lymphocytes % 33.6 %; Mean Corpuscular HGB Conc 31.6 g/dL (30.0-36.0); Mean Corpuscular Hemoglobin 27.1 pg (28.0-34.0); Mean Corpuscular Volume 85.5 fL (81-99); Mean Platelet Volume 9.1 fL (7.4-10.4); Monocytes # 0.7 10^3/uL (0.2-0.9); Monocytes % 9.1 %; Neutrophils # 4.4 10^3/uL (1.8-7.7); Neutrophils % 55.2 %; Nucleated Red Blood Cells % 0 %; Platelet Count 245 10^3/cmm (130-400); Red Blood Count 4.62 10^6/uL (4.1-5.3); Red Cell Distribution Width 13.8 % (12.1-15.1)
[2019-07-17 04:00] VITALS: BP 129/83; PULSE 64; RESP 14; TEMP 36.8; O2SAT 95
[2019-07-17 04:03] LABS: Anion Gap 13.6 (5-19); Blood Urea Nitrogen 10 mg/dL (6-20); Calcium 8.4 mg/dL (8.5-10.5); Carbon Dioxide 25 mmol/L (22-29); Chloride 101 mmol/L (98-107); Glomerular Filtration Rate 89.7 mL/min (90-130); Glucose 91 mg/dL (65-115); Osmolality Calculated 278 mOsm/kg (285-295); Potassium 3.6 mmol/L (3.5-5.1); Sodium 136 mmol/L (136-145)
--- NOTE | 2019-07-17 05:24 | PC.NURSE ---
let out the remaining 5 ml of air from tr band at 2150. At 22:30 i went back in to assess bleeding or lack thereof and removed tr band. there was no further bleeding and i removed the band, cleaned the area, only noted very small droplets forming. put betadine on the puncture site and covered itwith 2x2 folded in hald twice and tegaderm. Assessed site a couple hours later and noticed there was some bleeding on about 1/3 of the dressing. at 0430 assed it again and it had a bit more. will check shortly and see if the oozing has stopped or if bandage needs changed.
--- NOTE | 2019-07-17 06:06 | PM.DCS ---
Discharge Providers Date of Admission: 07/16/19 02:09 Date of Discharge: July 17, 2019 Attending Provider at Admission: Michaela Mckeon MD Attending Provider at Discharge: Michaela Mckeon MD Primary Care Provider: Aleksandra Rowley Diagnoses at Discharge Discharge Diagnosis (1) Non-STEMI (non-ST elevated myocardial infarction): Status: Acute Problem details: -presented as exertional chest pain; risk factors for CAD are HTN, chronic smoker, obesity, +FHx -noted elevated troponins with positive delta of 177 -no acute ischemic changes noted on ECG -telemetry monitoring -ROBSON -on Plavix, statin, ASA, therapeutic Lovenox -Cardiology consult by Dr. Santa appreciated -noted lipid panel, A1c -Echo: EF=60%, no RWMA, trace TR, trace ME -s/p cath; had stenting of proximal LAD (2) Hypertension: Status: Chronic Problem details: -continue to monitor vital signs -added low dose BB with improved BP control Qualifiers: Hypertension type: unspecified Qualified Code(s): I10 - Essential (primary) hypertension (3) Nicotine dependence, cigarettes, with other nicotine-induced disorders: Status: Chronic Problem details: -chronic smoker, 1 PPD -nicotine patch Other Information Additional DC diagnoses/information: -Obesity: BMI-33 kg/m2 -hx of psoriasis with noted dermatitis -recently treated for URI with course of prednisone and Azithromycin Reason for Visit Reason for Visit: Reason For Visit: chest pain Hospital Course Hospital Course: Patient was admitted to the cardiac stepdown unit and placed on telemetry monitoring. She had been transferred from [facility] where she had been found to have upward trending troponins with symptoms concerning for unstable angina. This trend of her troponins was noted here as well with a delta of 177. Cardiology was consulted and recommended coronary angiogram which patient had with stenting of proximal LAD, right radial approach. She is a chronic smoker and is counseled on smoking cessation. Risk stratification has been done as noted above. She was medically treated with therapeutic Lovenox prior to angiogram and has been continued on Plavix, statin, aspirin as well as beta-haley. Echo was done which shows an ejection fraction of 60% with no noted regional wall motion abnormalities. She is counseled on need to seek medical attention immediately should any of her symptoms return. She has been chest pain-free since her procedure. She is hemodynamically stable particularly with addition of low-dose beta-haley for more optimal blood pressure control. She is to follow-up with her primary care provider within 1 week. Discharge Summary: -Patient follow-up with primary care provider within 1 week. -Patient to follow up with FOUR SLIDE OPERATOR Leni Rose in 7 days for R radial artery check Physical Exam Const: COMMON NORMALS: no apparent distress and oriented x3 GENERAL APPEARANCE: cooperative and comfortable NUTRITIONAL APPEARANCE: obese ORIENTATION/CONSCIOUSNESS: Yes awake HENMT: COMMON NORMALS: normocephalic, head/scalp atraumatic, hearing grossly normal bilaterally and moist oral mucous membranes HEAD & SCALP: normocephalic and atraumatic Eye: COMMON NORMALS: PERRL, EOMs intact bilaterally and conjunctivae normal CONJUNCTIVA: Yes conjunctivae normal PUPIL: Yes PERRL Neck/C-Spine: COMMON NORMALS: full ROM GENERAL: Yes normal visual inspection and Yes trachea midline Resp: COMMON NORMALS: normal respiratory effort, no retractions, no use of accessory muscles and clear to auscultation bilaterally EFFORT & INSPECTION: Yes able to speak in complete sentences, Yes symmetric chest movement and No tachypneic AUSCULTATION: clear to auscultation bilaterally Cardio: COMMON NORMALS: regular rate, regular rhythm, S1 normal heart sound, S2 normal heart sound and no murmurs RATE: regular rate RHYTHM: regular rhythm HEART SOUNDS: S1 normal and S2 normal GI: COMMON NORMALS: normal to inspection, nondistended, normoactive bowel sounds, soft to palpation and non-tender INSPECTION: Yes central obesity PALPATION: Yes soft Extremity: COMMON NORMALS: normal to inspection, full ROM and no clubbing, cyanosis or edema; negative for no pedal edema Neuro: COMMON NORMALS: oriented x3, moves all extremities, no focal motor deficits and no sensory deficits noted Psych: COMMON NORMALS: mental status grossly normal, thought process normal, cooperative, affect normal and speech normal SPEECH: Yes normal speech THOUGHT PROCESS: normal thought process Skin: COMMON NORMALS: no jaundice, no petechiae and no mottling OTHER: psoriatic lesions on bilateral legs, elbows, face with noted dry flaky skin Discharge Data Data Completed and Pending: Completed Studies During Hospitalization Category Date Time Status CV echo complete* [id number] Routine Ultrasound 07/16/19 02:02 Completed Pending at discharge Category Date Time Status CRM COORDINATOR request for service Routin e Exams 07/16/19 08:23 Ordered Labs from last 24 hours 07/17/19 07/17/19 07/16/19 03:17 03:17 12:31 WBC 8.0 RBC 4.62 Hgb 12.5 Hct 39.5 MCV 85.5 MCH 27.1 L MCHC 31.6 RDW 13.8 Plt Count 245 MPV 9.1 Neut % (Auto) 55.2 Lymph % (Auto) 33.6 Donley % (Auto) 9.1 Eos % (Auto) 1.3 Baso % (Auto) 0.3 Neut # (Auto) 4.4 Lymph # (Auto) 2.7 Donley # (Auto) 0.7 Eos # (Auto) 0.1 Baso # (Auto) 0.0 Nucleated RBC % (a uto) 0 Nucleated RBCs # 0.0 Sodium 136 Potassium 3.6 Chloride 101 Carbon Dioxide 25 Anion Gap 13.6 BUN 10 Creatinine 0.7 GFR Calculation 89.7 L Glucose 91 POC Glucose 142 Estimat Average Gl ucose Hemoglobin A1c Calculated Osmolal ity 278 L Calcium 8.4 L 07/16/19 07/16/19 03:34 03:34 WBC 11.9 H RBC 4.92 Hgb 13.5 Hct 41.4 MCV 84.1 MCH 27.4 L MCHC 32.6 RDW 13.7 Plt Count 329 MPV 9.8 Neut % (Auto) 60.9 Lymph % (Auto) 28.2 Donley % (Auto) 10.0 Eos % (Auto) 0.3 Baso % (Auto) 0.2 Neut # (Auto) 7.2 Lymph # (Auto) 3.4 Donley # (Auto) 1.2 H Eos # (Auto) 0.0 Baso # (Auto) 0.0 Nucleated RBC % (a uto) 0 Nucleated RBCs # 0.0 Sodium Potassium Chloride Carbon Dioxide Anion Gap BUN Creatinine GFR Calculation Glucose POC Glucose Estimat Average Gl ucose 105 Hemoglobin A1c 5.3 Calculated Osmolal ity Calcium Vitals: Last Vital Signs Temp 98.3 F 07/17/19 04:00 Pulse 64 07/17/19 04:00 Resp 14 07/17/19 04:00 BP 129/83 07/17/19 04:00 Pulse Ox 95 07/17/19 04:00 Discharge Plan Discharge Patient Disposition: Home, Self-Care Condition: Stable Prescriptions: New atorvastatin 40 mg Tablet 40 mg PO BEDTIME 30 Days Qty: 30 RF: 0 clopidogrel 75 mg Tablet 75 mg PO DAILY 30 Days Qty: 30 RF: 0 aspirin 325 mg Tablet,Delayed Release (Dr/Ec) 325 mg PO DAILY 30 Days Qty: 30 RF: 0 Nitrostat 0.4 mg Tablet, Sublingual 0.4 mg sublingual Q5M PRN (Reason: Chest Pain) Qty: 30 RF: 0 metoprolol tartrate 25 mg Tablet 25 mg PO BID 30 Days Qty: 60 RF: 0 Continued Zithromax 250 mg tablet See Rx Instructions .ROUTE .COMPLEX RF: 0 prednisone 10 mg tablet See Taper mg PO RF: 0 Zyrtec 10 mg tablet 10 mg PO DAILY RF: 0 Discharge Orders: Discharge Order (Routine); Ordered 07/17/19 Ordered By: Michaela Mckeon Referrals: Leni Rose FNP [Nurse Practitioner] - 1 week (You have an appointment with Leni Rose on July 22, at 9:30 am. If you have any questions or concerns please call the office) Corinne Santa MD [Physician] - 2 months (You have an appointment with Dr. Santa on September 15, at 3:00pm. If you have any questions or concerns please call the office.) Daniel Villanueva [Referring] - 07/20/19 1:20 pm (You have an appointment to establish care with this provider. Please arrive early to your appointment and bring your medications with you in their original bottles. This appointment will be for the [facility] location, not [facility]. If you have any questions, you may call the number provided.) Discharge Diet: Cardiac Discharge Activity: Resume usual activity Patient Instructions: Metoprolol (By mouth), Aspirin (By mouth), Nitroglycerin, Rapid Release (By mouth), Atorvastatin (By mouth), Clopidogrel (By mouth), Hypertension, Myocardial Infarction (DC), Chest Pain (DC), How to Stop Smoking (DC), Chest Pain Stoplight, Post Heart Attack Stoplight Discharge Date/Time: 07/17/19 12:22 Discharge Attestations Time Spent in Discharge Care*: greater than 30 min Specific Discharge Activities: Specific discharge activities: educating patient, educating and/or supporting family/caregiver, discussing with outsole caser/social workers/dc planners, documenting/other paperwork and evaluating patient/reviewing data Time Spent in Smoking Cessation: Time spent discussing smoking cessation with patient: 3 to 10 minutes Details of Smoking Cessation Education: Need for smoking cessation given recent cardiac event as well as risk for continued cardiac events, developing lung disease. Status at Discharge: Cognitive status at discharge: cognitively intact, Behavioral status at discharge: cooperative, Functional status at discharge: independent ambulation Overall status at discharge: patient is back to baseline Quality Metrics Clinical Quality Measures During this hospital stay, did patient experience: None Coding Level of Care Code Acute Tar Chaser for Chg Fwd Exam Comprehensive Diagnoses Non-STEMI (non-ST elevated myocardial infarction) I21.4 Hypertension I10 Hypertension type: unspecified Nicotine dependence, cigarettes, with other nicotine-induced disorders F17.218
[2019-07-17 08:00] VITALS: BP 141/85; PULSE 73; RESP 12; TEMP 36.7; O2SAT 98
[2019-07-17] MEDS: azithromycin 250 mg Tablet PO (08:20)
[2019-07-17] MEDS: metoprolol tartrate 25 mg Tablet PO (08:20)
[2019-07-17] MEDS: aspirin 325 mg EC Tablet PO (08:20)
[2019-07-17] MEDS: nicotine 21 mg Patch 1 PATCH TRANSDERMA (08:20)
[2019-07-17] MEDS: pantoprazole DR 40 mg Tablet PO (08:20)
[2019-07-17] MEDS: clopidogrel 75 mg Tablet PO (08:21)
[2019-07-17] MEDS: cetirizine 10 mg Tablet PO (08:21)
[2019-07-17] MEDS: clotrimazole-betamethasone cream 15gm 1 APPLIC TOPICAL (08:23)
--- NOTE | 2019-07-17 10:18 | PC.CHAP ---
Pastoral Care Encounter/Spiritual Assessment Type of Contact [] Declined information security visit [] Patient/Family/Request visit [] Outpatient visit [] Follow-up visit [] Physician referral [] Code/Alert [x] Routine visit [] Staff referral [] Actively dying [] Patient sleeping [] Family support [] [] Out of room [] Palliative care [] [] Receiving care in room [] Pre-surgical visit [] Trauma [] Long length of stay [] ICU visit [] Other: Relational/Emotional Strength [] Patient feels connected with others/family/visitors/staff [] Distress [] Loneliness/isolation [] Abandonment Spirituality of Patient [] Person of [place] [] Attends Latter-Day of their [place] [x] Believes in Prayer [] Reads Bible or Jewish materials [] There are Spiritual issues to be addressed Upholsterer Inside Interventions [x] Prayer [] Active listening [] Non-anxious presence [] Spiritual/emotional support [] Crisis/trauma care [] Spiritual counseling [] Bereavement support [] Provided bereavement packet [] Provided Bible/devotional materials [] Provided toy/stuffed animal, coloring book to patient or family member [] Provided Communion [] Anointing/[place] [] Salvation [x] Completed spiritual assessment [] Other: Impact on Illness or Injury [] Angry [] Fearful [] Anxious [] Often cries [] Exhaustion [] Unable to work [] Unable to attend shinto [] Unable to walk/stand [] Unable to read [] Unable to drive [] Unable to eat/drink [] Unable to sleep [] Unable to be with family [] Patient intubated [] Other: Summary Patient feeling stronger, hoping to go home today. Patients spouse just stepped out of the room. Time spent with patient 10min
[2019-07-17 11:50] VITALS: BP 141/85; PULSE 73; RESP 12; TEMP 36.7; O2SAT 98
--- NOTE | 2019-07-17 12:09 | P.PN_ITS ---
Subjective Subjective: Interval history: Patient denies having any chest discomfort. She is ready to go home. Medications: Reviewed: Yes Medication Review Details: Current Medications Acetaminophen (Tylenol) 650 mg PO Q6H PRN PRN Reason: Mild/Mod Pain Or Temp >/= 101 Last Admin: 07/16/19 15:03 Dose: 650 mg Documented by: Al Hydrox/Mg Hydrox/Simethicone (Maalox) 30 ml PO Q4H PRN PRN Reason: INDIGESTION Aspirin (Aspirin Ec) 325 mg PO DAILY [facility] Last Admin: 07/17/19 08:20 Dose: 325 mg Documented by: Atorvastatin Calcium (Lipitor) 40 mg PO BEDTIME [facility] Last Admin: 07/16/19 21:31 Dose: 40 mg Documented by: Betamethasone/Clotrimazole (Lotrisone) 1 applic TOPICAL TID [facility] Last Admin: 07/17/19 08:23 Dose: 1 applic Documented by: Bisacodyl (Dulcolax) 10 mg PO DAILY PRN PRN Reason: CONSTIPATION Calcium Carbonate (Tums) 1,000 mg PO Q4H PRN PRN Reason: DYSPEPSI Last Admin: 07/16/19 03:26 Dose: 1,000 mg Documented by: Cetirizine HCl (Zyrtec) 10 mg PO DAILY [facility] Last Admin: 07/17/19 08:21 Dose: 10 mg Documented by: Clopidogrel Bisulfate (Plavix) 75 mg PO DAILY [facility] Last Admin: 07/17/19 08:21 Dose: 75 mg Documented by: Enoxaparin Sodium (Lovenox) 40 mg SUBCUT Q24H [facility] Last Admin: 07/16/19 17:29 Dose: 40 mg Documented by: Metoprolol Tartrate (Lopressor) 25 mg PO BID [facility] Last Admin: 07/17/19 08:20 Dose: 25 mg Documented by: Nicotine (Nicoderm 21 Mg Patch) 1 patch TRANSDERMA DAILY [facility] Last Admin: 07/17/19 08:20 Dose: 1 patch Documented by: Nitroglycerin (Nitrostat) 0.4 mg SUBLINGUAL Q5M PRN PRN Reason: CHEST PAIN Nitroglycerin (Nitro-Bid) 1 inch TOPICAL Q6H [facility] Last Admin: 07/17/19 06:10 Dose: Not Given Documented by: Ondansetron HCl (Zofran) 4 mg IVP Q8H PRN PRN Reason: vomiting, or N/V if npo Pantoprazole Sodium (Protonix) 40 mg PO DAILY [facility] Last Admin: 07/17/19 08:20 Dose: 40 mg Documented by: Vitals/I&O/Wt Last Vital Signs Temp 98.0 F 07/17/19 11:50 Pulse 73 07/17/19 11:50 Resp 12 07/17/19 11:50 BP 141/85 07/17/19 11:50 Pulse Ox 98 07/17/19 11:50 07/16/19 07/17/19 07/17/19 22:59 06:59 14:59 Intake Total 1105 / 1225 200 / 1425 240 / 240 Balance 1105 / 1225 200 / 1425 240 / 240 Weight last 48 hrs Weight 198 lb 4.8 oz Weight 196 lb 4.8 oz Weight 192 lb 3 oz Physical Exam Narrative: EXAM NARRATIVE: GENERAL: Patient is alert, awake and oriented x3. NECK: No jugular vein distension. HEENT: No cyanosis. No icterus. No pallor. HEART: Regular S1 and S2. No murmur, rub or gallop. LUNGS: Clear to auscultate bilaterally. ABDOMEN: Soft, nontender and nondistended. Positive bowel sounds. No guarding, rebound or tenderness. CENTRAL NERVOUS SYSTEM: Grossly nonfocal. EXTREMITIES: Lower extremities without edema bilaterally. Data : 07/17/19 03:17 07/17/19 03:17 A&P Assessment and plan (1) Non-STEMI (non-ST elevated myocardial infarction): Patient has CAD risk factors of smoking and family history of CAD. Patient underwent coronary angiogram and had drug-eluting stent placement to 80% proximal LAD stenosis. -Normal LV function with no regional wall motion abnormality on echocardiogram. -Continue aspirin, Plavix, metoprolol and statin. Nitroglycerin sublingual as needed. -Follow-up in 1 week with [facility] for site check and BMP. -Follow-up with me in 8 weeks. Status: Acute Code(s): I21.4 - Non-ST elevation (NSTEMI) myocardial infarction (2) Hypertension: Monitor blood pressure and heart rate at home. Further adjustment in medications based on blood pressure and heart rate. Status: Chronic Qualifiers: Hypertension type: unspecified Qualified Code(s): I10 - Essential (primary) hypertension Code(s): I10 - Essential (primary) hypertension (3) Nicotine dependence, cigarettes, with other nicotine-induced disorders: Chronic active smoker. Advised on smoking cessation repeatedly. Status: Chronic Code(s): F17.218 - Nicotine dependence, cigarettes, with other nicotine-induced disorders Attestations Medical Necessity Statement*: Patient is stable to be discharged home from cardiac standpoint. Coding Level of Care Code Acute Gripper Attacher for [facility] Shawna Diagnoses Non-STEMI (non-ST elevated myocardial infarction) I21.4 Hypertension I10 Hypertension type: unspecified Nicotine dependence, cigarettes, with other nicotine-induced disorders F17.218
== END 2019-07-17 12:22 | disposition home or self-care (01) | DRG 247 ==
PROVIDERS: Hospitalist; Internal Medicine Cardiovascular Disease; Admitting Provider Family Medicine; Family Provider Nurse Practitioner Family; PCP Nurse Practitioner Family; Visit Provider Family Medicine
PROC: 027034Z Dilation of Coronary Artery, One Artery with Drug-eluting Intraluminal Device, Percutaneous Approach (ICD-10-PCS; principal; 2019-07-16 09:00)
PROC: 027034Z Dilation of Coronary Artery, One Artery with Drug-eluting Intraluminal Device, Percutaneous Approach (ICD-10-PCS; 2019-07-16 09:00)
DX: I21.4 Non-ST elevation (NSTEMI) myocardial infarction (principal); I10 Essential (primary) hypertension; F17.218 Nicotine dependence, cigarettes, with other nicotine-induced disorders; F03.90 Unspecified dementia, unspecified severity, without behavioral disturbance, psychotic disturbance, mood disturbance, and anxiety; F32.9 Major depressive disorder, single episode, unspecified; F41.9 Anxiety disorder, unspecified; E66.9 Obesity, unspecified; Z68.33 Body mass index [BMI] 33.0-33.9, adult; Z79.2 Long term (current) use of antibiotics
CPT/HCPCS: 12345; 36415; 36416; 80048; 80061; 82962; 83036; 83880; 84484; 85025; 93005; 93306; 93454; 96372; C1725; C1769; C1874; C1887; C1894; C9600; G0378; G0379; J1644; J1650; J2001; J2250; J3010; J3246; J3490; J7030; Q0144; Q0163; Q9967

== ENCOUNTER → 2019-07-23 10:48 | Outpatient (BNVA) | payer SELFPAY | PROVIDERS: Family Provider Nurse Practitioner Family; PCP Nurse Practitioner Family; Visit Provider Nurse Practitioner Family | DX: I10 Essential (primary) hypertension (principal); I25.119 Atherosclerotic heart disease of native coronary artery with unspecified angina pectoris | CPT/HCPCS: 80048 ==

== ENCOUNTER → 2019-12-25 10:34 | Outpatient (BNVA) | payer SELFPAY | PROVIDERS: Family Provider Nurse Practitioner Family; PCP Nurse Practitioner Family; Visit Provider Internal Medicine Cardiovascular Disease | DX: E78.5 Hyperlipidemia, unspecified (principal); I25.119 Atherosclerotic heart disease of native coronary artery with unspecified angina pectoris | CPT/HCPCS: 80053; 80061; 83721 ==

== ENCOUNTER 2021-11-19 19:15 | Observation (INO) | payer OTHER, SELFPAY ==
--- NOTE | 2021-11-19 19:26 | XRR_ITS ---
PROCEDURE INFORMATION: Exam: XR Chest Exam date and time: 11/19/2021 7:35 PM Age: 51 years old Clinical indication: Angina; Additional info: Chest pain TECHNIQUE: Imaging protocol: Radiologic exam of the chest. Views: 1 view. COMPARISON: No relevant prior studies available. FINDINGS: Lungs: Unremarkable. No consolidation. Pleural spaces: Unremarkable. No pleural effusion. No pneumothorax. Heart/Mediastinum: Unremarkable. No cardiomegaly. Bones/joints: Unremarkable. XR/XR chest 1V portable [id number] IMPRESSION: No acute findings.
--- NOTE | 2021-11-19 19:27 | ECG_ITS ---
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 Measurements Intervals [place] Rate: 81 P: 41 [place]: 155 QRS: 13 QRSD: 79 T: 48 QT: 344 QTc: 399 Interpretive Statements SINUS RHYTHM POSSIBLE LEFT ATRIAL ENLARGEMENT [-0.1mV P-WAVE IN V1/V2] POSSIBLE INFERIOR MYOCARDIAL INFARCTION , PROBABLY OLD [30 ms Q WAVE IN II/aVF] Compared to ECG 07/16/2019 04:10:01 Myocardial infarct finding now present Sinus bradycardia no longer present T-wave abnormality no longer present Electronically Signed On 11-20-2021 8:40:38 CDT by Keven Lambert M.D. [id number] f
[2021-11-19 19:31] VITALS: BP 127/74; PULSE 87; RESP 25; TEMP 37.3; O2SAT 97; BMI 31.1
--- NOTE | 2021-11-19 19:31 | W.ED.CHESTPA ---
HPI - Chest Pain General: Chief Complaint: Chest Pain Stated Complaint: CP Time Seen by Provider: 11/19/21 19:31 History of Present Illness: Ms. Escobar is a 51-year-old lady with history of known CAD history of NSTEMI, history of coronary artery stent, hypertension, hyperlipidemia, continued tobacco abuse who presents to the emergency department due to chest pain. Onset of symptoms was with exertion at approximately 5 PM. She reports pain in the middle of her chest associated with presyncope feeling and shortness of breath. Additionally she endorses radiational left arm. She reports this feels similar to prior heart attack. Over the past few months she denies frequent chest pain however has had palpitations. Overall course of symptoms has improved. At worst intensity was moderate to severe. No other specific changes in health, exacerbating, or alleviating factors identified. Onset (ago): hour(s) Timing of current episode: constant Prior episodes: Yes Onset: during exertion Pain location: substernal Pain radiation: left arm Severity: moderate Quality: heaviness Exacerbating factors: movement Associated symptoms: Reports other Treatment prior to arrival: aspirin and nitroglycerin Review of Systems General: Reports: 10 or more systems reviewed and unremarkable except in HPI and below PFSH ED PFSH: Medical History Coronary artery disease Dyslipidemia Hypertension -continue to monitor vital signs -added low dose BB with improved BP control Nicotine dependence, cigarettes, with other nicotine-induced disorders Non-STEMI (non-ST elevated myocardial infarction) -presented as exertional chest pain; risk factors for CAD are HTN, chronic smoker, obesity, +FHx -noted elevated troponins with positive delta of 177 -no acute ischemic changes noted on ECG -telemetry monitoring -ROBSON -on Plavix, statin, ASA, therapeutic Lovenox -Cardiology consult by Dr. Santa appreciated -noted lipid panel, A1c -Echo: EF=60%, no RWMA, trace TR, trace [place] -s/p cath; had stenting of proximal LAD Scoliosis Surgical History History of tubal ligation Family History Father CAD (coronary artery disease) She describes him having either an angiogram with angioplasty or something more invasive Cancer Lung cancer Mother Irregular heart rhythm Other Diabetes Social History Smoking and tobacco status: current every day smoker cigarettes Quit status (tobacco): quit date established Second hand smoke exposure: No Smoking risk assessment/counseling performed?: No Alcohol intake: current Alcohol intake frequency: holidays/special occasions only Female Reproductive History: Para: 2 Physical Exam Const: COMMON NORMALS: alert GENERAL APPEARANCE: cooperative and well developed HENMT: COMMON NORMALS: normocephalic and atraumatic HEAD & SCALP: normocephalic and atraumatic Eye: COMMON NORMALS: conjunctivae normal CONJUNCTIVA: Yes conjunctivae normal SCLERA: sclerae normal Neck/C-Spine: COMMON NORMALS: supple GENERAL: Yes trachea midline Resp: COMMON NORMALS: normal respiratory effort EFFORT & INSPECTION: Yes able to speak in complete sentences AUSCULTATION: wheezes expiratory wheezes (Trace) and lower bilaterally and diminished lung sounds Cardio: COMMON NORMALS: regular rate and regular rhythm RATE: regular rate RHYTHM: regular rhythm GI: COMMON NORMALS: Soft to palpation PALPATION: Yes Soft to palpation and No Tenderness to palpation present (GI) Extremity: GENERAL: Yes normal exam except as noted and No edema Neuro: COMMON NORMALS: moves all extremities SENSORIUM/ORIENTATION: Yes alert and No Orientation impaired Psych: COMMON NORMALS: mental status grossly normal and Normal thought process present THOUGHT PROCESS: Normal thought process present Course ED course: - Patient was seen and evaluated by me at bedside - Patient placed on cardiac monitors, IV access obtained - Initial evaluation notable for exam as above - Labs and xrays personally interpreted by me. EKG notable for inferior Q waves, no STEMI. 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 Delta troponin negative. - Imaging notable for no acute findings - Upon serial reexamination after treatment the patient was similar - Based on patient history, evaluation, and testing as interpreted the most likely cause of the patient's condition is chest pain with moderate risk heart score - The results of ED evaluation were discussed with the patient including plan for admission due to requirement for level of care not available if discharged to prevent significant worsening/deterioration. - Admitting service was contacted and Dr Low with the hospitalist service agreed to admit the patient - Patient was admitted without further deterioration or significant events. Note: Click bubbles or prepopulated vinson in note writing are used for assistance with data collection and billing and are inherently more limited than narrative and other text portions of this note. Please use narrative for additional clinical history and defer to narrative/free test for any case of contradictory information. If information appears in only free text or click bubble it should be considered present or absent as reported. Please contact note advertising copy writer for clarifications of clinical information or contradictory information. MDM is a brief summary, contradictory or erroneous seeming information should be clarified and full note should be reviewed. Vital Signs: Vital signs: Vital Signs Temperature 98.6 F 11/22/21 04:00 Pulse Rate 75 11/22/21 16:00 Respiratory Rate 17 11/22/21 16:00 Blood Pressure 111/71 11/22/21 16:00 Pulse Oximetry 95 11/22/21 16:00 MDM - Chest Pain Medical Decision Making 51-year-old lady with significant cardiac history presenting with chest pain similar to prior NM. EKG without acute STEMI, negative delta troponin. Patient is not low risk by heart score given history and was admitted for further cardiac evaluation. Medical Records I reviewed the patient's medical records. Lab Data I reviewed the patient's lab results. : 11/19/21 18:24 11/19/21 18:24 Radiology Impressions Chest X-Ray 11/19/21 19:26 IMPRESSION: No acute findings. Laboratory Results WBC 8.9 10^3/uL (4.0-10.0) 11/19/21 18:24 RBC 4.77 10^6/uL (4.1-5.3) 11/19/21 18:24 Hgb 14.3 g/dL (11.5-15.3) 11/19/21 18:24 Hct 43.0 % (37.0-47.0) 11/19/21 18:24 MCV 90.1 fl (81-99) 11/19/21 18:24 MCH 30.0 pg (28.0-34.0) 11/19/21 18:24 MCHC 33.3 g/dL (30.0-36.0) 11/19/21 18:24 RDW 13.0 % (12.1-15.1) 11/19/21 18:24 Plt Count 225 10^3/cmm (130-400) 11/19/21 18:24 MPV 10.7 fL (7.4-10.4) H 11/19/21 18:24 Neut % (Auto) 64.3 % 11/19/21 18:24 Lymph % (Auto) 25.2 % 11/19/21 18:24 [place] % (Auto) 7.7 % 11/19/21 18:24 Eos % (Auto) 2.1 % 11/19/21 18:24 Baso % (Auto) 0.4 % 11/19/21 18:24 Neut # (Auto) 5.74 10^3/uL (1.8-7.7) 11/19/21 18:24 Lymph # (Auto) 2.3 10^3/uL (0.8-4.8) 11/19/21 18:24 [place] # (Auto) 0.7 10^3/uL (0.2-0.9) 11/19/21 18:24 Eos # (Auto) 0.2 10^3/uL (0.0-0.8) 11/19/21 18: Baso # (Auto) 0.0 10^3/uL (0.0-0.1) 11/19/21 18:24 Nucleated RBC % (auto) 0 % 11/19/21 18: Nucleated RBCs # 0.0 /100WBC 11/19/21 18:24 PT 13.00 SECONDS (12.1-14.9) 11/19/21 21:45 INR 0.95 (0.8-1.2) 11/19/21 21:45 APTT 34.0 SECONDS (23.9-36.7) 11/19/21 21:45 Sodium 136 mmol/L (136-145) 11/19/21 18:24 Potassium 3.6 mmol/L (3.5-5.1) 11/19/21 18:24 Chloride 97 mmol/L (98-107) L 11/19/21 18:24 Carbon Dioxide 25 mmol/L (22-29) 11/19/21 18:24 Anion Gap 17.6 (5-19) 11/19/21 18:24 BUN 10 mg/dL (6-20) 11/19/21 18:24 Creatinine 0.8 mg/dL (0.5-0.9) 11/19/21 18:24 GFR Calculation 76.2 mL/min (90-130) L 11/19/21 18:24 Glucose 108 mg/dL (65-115) 11/19/21 18:24 Calculated Osmolality 282 mOsm/kg (285-295) L 11/19/21 18:24 Calcium 9.1 mg/dL (8.5-10.5) 11/19/21 18:24 Magnesium 2.0 mg/dL (1.7-2.3) 11/19/21 18:24 Total Bilirubin 0.3 mg/dL (0.15-1.2) 11/19/21 18:24 AST 16 U/L (0-32) 11/19/21 18:24 ALT 12 U/L (0-33) 11/19/21 18:24 Alkaline Phosphatase 85 IU/L (35-105) 11/19/21 18:24 Troponin T Baseline 6 ng/L (0-10) 11/19/21 18:24 Troponin T 120 Minute 7.21 ng/L (0-10) 11/19/21 20:44 Delta Troponin T 1.21 ABS# (0-10) 11/19/21 20:44 NT-Pro-B Natriuret Pep 65 pg/mL (0-125) 11/19/21 18:24 Total Protein 6.6 g/dL (6.6-8.7) 11/19/21 18:24 Albumin 4.5 g/dL (3.5-5.2) 11/19/21 18:24 Globulin 2.1 g/dL (1.3-4.6) 11/19/21 18:24 Lipase 30 U/L (13-60) 11/19/21 18:24 TSH 2.02 uIU/mL (0.27-4.20) 11/19/21 18:24 HCG, Qual Negative (Negative) 11/19/21 20:30 Discharge Plan Discharge Patient Disposition: Placed in Observation Admit Provider: Sherry Low Clinical Impression: Chest pain Discharge Diet: Cardiac and Low Salt Discharge Activity: Resume usual activity Coding Level of Care Code ED Education And Training Coordinator for Chg Fwd Exam Comprehensive
[2021-11-19 20:10] LABS: Basophils % 0.4 %; Eosinophils # 0.2 10^3/uL (0.0-0.8); Eosinophils % 2.1 %; Hemoglobin 14.3 g/dL (11.5-15.3); Lymphocytes # 2.3 10^3/uL (0.8-4.8); Lymphocytes % 25.2 %; Mean Corpuscular HGB Conc 33.3 g/dL (30.0-36.0); Mean Corpuscular Volume 90.1 fl (81-99); Mean Platelet Volume 10.7 fL (7.4-10.4); Monocytes # 0.7 10^3/uL (0.2-0.9); Monocytes % 7.7 %; Neutrophils # 5.74 10^3/uL (1.8-7.7); Neutrophils % 64.3 %; Nucleated Red Blood Cells % 0 %; Platelet Count 225 10^3/cmm (130-400); Red Blood Count 4.77 10^6/uL (4.1-5.3); White Blood Count 8.9 10^3/uL (4.0-10.0)
[2021-11-19 20:37] LABS: HCG Qualitative Urine. Negative (Negative)
[2021-11-19 20:37] LABS: Troponin(5th) Baseline 6 ng/L (0-10)
[2021-11-19 20:45] LABS: Alanine Aminotransferase 12 U/L (0-33); Albumin Level 4.5 g/dL (3.5-5.2); Alkaline Phosphatase 85 IU/L (35-105); Aspartate Amino Transferase 16 U/L (0-32); Blood Urea Nitrogen 10 mg/dL (6-20); Calcium 9.1 mg/dL (8.5-10.5); Carbon Dioxide 25 mmol/L (22-29); Chloride 97 mmol/L (98-107); Globulin 2.1 g/dL (1.3-4.6); Glomerular Filtration Rate 76.2 mL/min (90-130); Glucose 108 mg/dL (65-115); Lipase 30 U/L (13-60); NT Pro B Type Natriuretic Pept 65 pg/mL (0-125); Osmolality Calculated 282 mOsm/kg (285-295); Sodium 136 mmol/L (136-145); Thyroid Stimulating Hormone 2.02 uIU/mL (0.27-4.20); Total Bilirubin 0.3 mg/dL (0.15-1.2); Total Protein 6.6 g/dL (6.6-8.7)
[2021-11-19 20:52] LABS: Anion Gap 17.6 (5-19); Potassium 3.6 mmol/L (3.5-5.1)
[2021-11-19 21:09] LABS: Troponin 5 2HR 7.21 ng/L (0-10)
--- NOTE | 2021-11-19 21:27 | ECG_ITS ---
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 Measurements Intervals [place] Rate: 70 P: 38 [place]: 170 QRS: 16 QRSD: 75 T: 42 QT: 370 QTc: 400 Interpretive Statements SINUS RHYTHM POSSIBLE LEFT ATRIAL ENLARGEMENT [-0.1mV P-WAVE IN V1/V2] Compared to ECG 07/16/2019 04:10:01 Sinus bradycardia no longer present T-wave abnormality no longer present Electronically Signed On 11-20-2021 8:48:29 CDT by Keven Lambert M.D. [id number]
[2021-11-19 21:39] VITALS: BP 156/76; PULSE 81; RESP 17; O2SAT 98
[2021-11-19 21:41] LABS: Troponin 5 2HR Delta 1.21 ABS# (0-10)
[2021-11-19 22:00] VITALS: PULSE 58
[2021-11-19 22:04] VITALS: BP 119/90; PULSE 73; RESP 16; TEMP 36.8; O2SAT 96
[2021-11-19 22:06] VITALS: BMI 30.2
[2021-11-19 22:10] LABS: INR 0.95 (0.8-1.2)
--- NOTE | 2021-11-19 22:56 | PM.HP ---
Providers/Chief Complaint Admitting Physician: Sherry Low MD Primary Care Provider: Daniel Villanueva Chief Complaint: CP History of Present Illness Mignon A Young is a 51 year old female with PMH smoking, NSTEMI 06/2019 with PCI to proximal LAD?presenting today with chest pain that started at 5PM. Located in the center of chest, radiating to left arm, associated with palpitations and light headedness. Pain lasted approximately for 10 minutes. Eventually relieved after she presented to the ER and received sublingual nitro. Patient states she has been having similar pain on and off at least for the past month. Typically episodes are associated with exertion. Today's episode was associated with trying to climb uphill. States compliance with all of her medications. EKG today does not show any acute ST-T wave changes. Review of Systems General: Reports: 10 or more systems reviewed and unremarkable except in HPI and below Const: Denies: fever(s), chills or body aches Eyes: Denies: change in vision, blurry vision or photophobia ENMT: Reports: hoarseness; Denies: throat pain, enlarged tonsils, odynophagia or nasal congestion Card: Denies: chest pain, palpitations, irregular heart rhythm, edema, swelling of feet/ankles, lightheadedness, pre-syncope, dyspnea on exertion or orthopnea Resp: Denies: dyspnea, productive cough, non-productive cough, wheezing, stridor, pain on inspiration, change in phlegm color, hemoptysis or chest congestion GI: Denies: abdominal pain, nausea, vomiting, hematemesis, coffee ground emesis, dysphagia, heartburn, diarrhea, constipation, GI cramping, change in stool character, hematochezia or melena : Denies: flank pain, difficulty voiding, dysuria, urinary frequency, urinary urgency, urinary hesitancy or hematuria Musc: Denies: neck pain, back pain, extremity pain, joint swelling, joint warmth or deformity Neuro: Denies: headache(s), numbness in extremities, weakness in extremities, sensory changes, difficulty walking, frequent falls, dizziness, vertigo, behavioral changes, Slurred speech present or seizure-like activity Psych: Denies: anxiety, depression, suicidal ideation or homicidal ideation Endo: Denies: polyuria, polydipsia, tired all the time, cold intolerance or hot flashes Zach/Lymph: Denies: easy bruising or easy bleeding Medications/Allergies Home Medications Medication Instructions Recorded Confirmed Last Taken Type aspirin 81 mg tablet,delayed 81 mg PO DAILY 09/16/19 11/19/21 Unknown History release (Adult Aspirin Regimen) cyclobenzaprine 10 mg tablet 10 mg PO BID PRN 06/28/20 11/19/21 11/18/21 17:00 History nitroglycerin 0.4 mg sublingual 0.4 mg SUBLINGUAL Q5M PRN #30 tab 06/28/20 11/19/21 11/19/21 17:00 Rx tablet (Nitrostat) atorvastatin 40 mg tablet 40 mg PO BEDTIME #90 tab 05/05/21 11/19/21 Unknown Rx ezetimibe 10 mg tablet (Zetia) 10 mg PO DAILY #90 tab 05/05/21 11/19/21 Unknown Rx hydrochlorothiazide 25 mg tablet 25 mg PO DAILY #90 tab 05/05/21 11/19/21 Unknown Rx lisinopril 10 mg tablet 10 mg PO DAILY #90 tab 05/05/21 11/19/21 Unknown Rx trazodone 50 mg tablet 50 mg PO BEDTIME PRN 11/19/21 11/19/21 11/18/21 20:00 History Allergies Allergy/AdvReac Type Severity Reaction Status Date / Time bacitracin Allergy Unknown Verified 05/05/21 10:21 [From Triple Antibiotic] cephalexin [From Keflex] Allergy Unknown Verified 05/05/21 10:21 neomycin Allergy Unknown Verified 05/05/21 10:21 [From Triple Antibiotic] polymyxin B Allergy Unknown Verified 05/05/21 10:21 [From Triple Antibiotic] PFSH Acute PFSH: Medical History Coronary artery disease Dyslipidemia Hypertension -continue to monitor vital signs -added low dose BB with improved BP control Nicotine dependence, cigarettes, with other nicotine-induced disorders Non-STEMI (non-ST elevated myocardial infarction) -presented as exertional chest pain; risk factors for CAD are HTN, chronic smoker, obesity, +FHx -noted elevated troponins with positive delta of 177 -no acute ischemic changes noted on ECG -telemetry monitoring -ROBSON -on Plavix, statin, ASA, therapeutic Lovenox -Cardiology consult by Dr. Santa appreciated -noted lipid panel, A1c -Echo: EF=60%, no RWMA, trace TR, trace [place] -s/p cath; had stenting of proximal LAD Scoliosis Surgical History History of tubal ligation Family History Father CAD (coronary artery disease) She describes him having either an angiogram with angioplasty or something more invasive Cancer Lung cancer Mother Irregular heart rhythm Other Diabetes Social History Smoking and tobacco status: current every day smoker cigarettes Quit status (tobacco): quit date established Second hand smoke exposure: No Smoking risk assessment/counseling performed?: No Alcohol intake: current Alcohol intake frequency: holidays/special occasions only Female Reproductive History: Para: 2 Vitals/I&O/Wt Last Vital Signs Temp 98.2 F 11/19/21 22:04 Pulse 73 11/19/21 22:04 Resp 16 11/19/21 22:04 BP 119/90 11/19/21 22:04 Pulse Ox 96 11/19/21 22:04 Weight last 48 hrs Weight 74.843 kg Weight 77.111 kg Physical Exam Narrative: General: No acute distress, AO x3 HEENT: PERRLA, pupils bilaterally equal and reactive, pallors not present Chest: Normal vesicular breath sounds, no added sounds, equal good air entry bilaterally CVS: S1-S2 regular, no murmurs, no tachycardia, no gallops, no rubs Abdomen: Soft, nontender, no organomegaly, bowel sounds present Neuro: No focal deficits, no facial deformity, AO x3, power 5/5 in all limbs Data : 11/19/21 18:24 11/19/21 18:24 A&P Assessment and plan (1) Chest pain: Admit to CSU in observation Currently chest pain free EKG withotu acute ST-T wave changes Trop not levated at baseline or 2 hrs, awaiting 6 hrs troponin Stress test in am given suspicion for angina, past medical history of CAD continue ASA, atorvastatin, ezetimibe, lisinopril Status: Acute Attestations Medical Necessity Statement*: anticipate less than 2 midnight admission for evaluation of chest pain, stress test Coding Level of Care Code Acute Social Security Benefits Interviewer for Chg Fwd Diagnoses Chest pain R07.9
[2021-11-19] MEDS: acetaminophen 325 mg Tablet 650 MG PO (23:09)
[2021-11-19 23:47] VITALS: BP 121/88; PULSE 83; RESP 17; TEMP 36.6; O2SAT 96
[2021-11-20] VITALS (8 sets, daily range): BP systolic 95–107; BP diastolic 61–74; PULSE 58–88; RESP 13–20; TEMP 36.4–36.8; O2SAT 95–98
--- NOTE | 2021-11-20 01:27 | ECG_ITS ---
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 Measurements Intervals [place] Rate: 53 P: 51 [place]: 176 QRS: 42 QRSD: 77 T: 58 QT: 427 QTc: 403 Interpretive Statements SINUS BRADYCARDIA POSSIBLE LEFT ATRIAL ENLARGEMENT [-0.1mV P-WAVE IN V1/V2] INTERPRETATION BASED ON A DEFAULT AGE OF 40 YEARS Compared to ECG 11/19/2021 21:40:17 Sinus rhythm no longer present Electronically Signed On 11-20-2021 8:50:02 CDT by Keven Lambert M.D. [id number] f
[2021-11-20 02:30] LABS: Troponin 5 6HR 7.92 ng/L (0-10)
[2021-11-20 02:31] LABS: Troponin 5 6HR Delta 1.92 ng/L (0-12)
[2021-11-20] MEDS: aspirin 81 mg EC Tablet PO (08:25)
[2021-11-20] MEDS: nicotine 14 mg Patch 1 PATCH TRANSDERMA (08:25)
[2021-11-20] MEDS: ezetimibe 10 mg Tablet PO (08:25)
[2021-11-20] MEDS: pantoprazole DR 40 mg Tablet PO (08:25)
[2021-11-20] MEDS: hydroCHLOROthiazide 25 mg Tablet PO (08:25)
[2021-11-20] MEDS: lisinopril 10 mg Tablet PO (08:26)
--- NOTE | 2021-11-20 10:44 | PC.CHAP ---
Pastoral Care Encounter/Spiritual Assessment Type of Contact [] Declined snaker visit [] Patient/Family/Request visit [] Outpatient visit [] Follow-up visit [] Physician referral [] Code/Alert [x] Routine visit [] Staff referral [] Actively dying [] Patient sleeping [] Family support [] [] Out of room [] Palliative care [] [] Receiving care in room [] Pre-surgical visit [] Trauma [] Long length of stay [] ICU visit [] Other: Relational/Emotional Strength x [] Patient feels connected with others/family/visitors/staff [] Distress [] Loneliness/isolation [] Abandonment Spirituality of Patient [x] Person of [place] [] Attends Judaism of their [place] [x] Believes in Prayer [] Reads Bible or Sikhism materials [] There are Spiritual issues to be addressed Chiropractic Care Interventions x [x] Prayer [x] Active listening [x] Non-anxious presence [] Spiritual/emotional support [] Crisis/trauma care [] Spiritual counseling [] Bereavement support [] Provided bereavement packet [] Provided Bible/devotional materials [] Provided toy/stuffed animal, coloring book to patient or family member [] Provided Communion [] Anointing/[place] [] Salvation [x] Completed spiritual assessment [] Other: Impact on Illness or Injury [] Angry [] Fearful [] Anxious [] Often cries [] Exhaustion [] Unable to work [] Unable to attend jainism [] Unable to walk/stand [] Unable to read [] Unable to drive [] Unable to eat/drink [] Unable to sleep [] Unable to be with family [] Patient intubated [] Other: Summary Time spent with patient 10 min
--- NOTE | 2021-11-20 13:00 | PM.PN ---
Subjective Subjective: This morning patient was laying flat Family at the bedside Endorsing to smoking 1 pack/day Compliant with her medications She is not willing to quit smoking Stress test tomorrow morning No active chest pain She has been able to get up walk around No recurrence of symptoms Vitals/I&O/Wt Last Vital Signs Temp 97.8 F 11/20/21 11:37 Pulse 61 11/20/21 11:37 Resp 18 11/20/21 11:37 BP 95/61 11/20/21 11:37 Pulse Ox 95 11/20/21 11:37 11/19/21 11/20/21 11/20/21 22:59 06:59 14:59 Intake Total 1000 / 1000 460 / 460 Balance 1000 / 1000 460 / 460 Weight last 48 hrs Weight 74.843 kg Weight 77.111 kg Physical Exam Narrative: Patient is laying supine No active chest pain Saturating well on room air Nonfocal neuro exam Abdomen soft Smoker's cough No active distress Nonfocal neuro exam Family is at the bedside S1, S2 No audible stridor or wheezing Data : 11/19/21 18:24 11/19/21 18:24 A&P Assessment and plan (1) Chest pain: Status: Acute Plan Established coronary disease Unstable angina Plan for stress test tomorrow Currently chest pain-free Hemodynamically stable Patient is not willing to quit smoking Did spend time on counseling in front of her family members She is full code N.p.o. after midnight Hold AV liv blocking agent for tomorrow stress test Full code DVT prophylaxis on board Cardiac diet Attestations Medical Necessity Statement*: Stress test tomorrow Time Spent in Patient Care: 30 Coding Level of Care Code Acute Balance Bridge Inspector for Isis Matos Diagnoses Chest pain R07.9
--- NOTE | 2021-11-20 13:04 | USCV_ITS ---
Mignon Escobar Age: 51 Gender: F : 1970 Exam Date: 11/20/2021 13:23 Ordering Phys: Ryan Jha MD Technologist: Reina Vera Exam Location: [facility] [place] Indication: UA BP: 95 / 61 HR: 76 Rhythm: Sinus Technical Quality: Adequate MEASUREMENTS (Male / Female) Normal Values 2D ECHO LV Diastolic Diameter PLAX 4.2 cm 4.2 - 5.9 / 3.9 - 5.3 cm LV Systolic Diameter PLAX 2.8 cm LV Chamber Size 3.5 cm IVS Diastolic Thickness 1.0 cm 0.6 - 1.0 / 0.6 - 0.9 cm IVS Systolic Thickness 1.6 cm LVPW Diastolic Thickness 1.1 cm 0.6 - 1.0 / 0.6 - 0.9 cm LVPW Systolic Thickness 1.7 cm RV Chamber Size 2.2 cm LVOT Diameter 2.0 cm LV Ejection Fraction 2D Teich 61.3 % LV Ejection Fraction MOD 2C 76.4 % LV Ejection Fraction 2C AL 77.5 % LA Diameter 3.5 cm LA Width 2.9 cm LA Height 4.7 cm RA Width 3.7 cm RA Height 4.3 cm Aorta at Sinotubular Diameter 2.7 cm IVC Diameter 1.6 cm M-MODE Aortic Annulus Diameter 3.0 cm LA Ao Ratio MM 1.2 MV E Point Septal Separation 0.5 cm DOPPLER AV Peak Velocity 160.0 cm/s LVOT Peak Velocity 135.0 cm/s AV Area Cont Eq vti 2.7 cm squared AV Area Cont Eq pk 2.7 cm squared MV Area PHT 2.8 cm squared Mitral E to A Ratio 0.9 MV E' Velocity 60.0 cm/s Mitral E to MV E' Ratio 10.6 Mitral E to LV E' Lateral Ratio 9.7 Mitral E to LV E' Septal Ratio 11.7 TR Peak Velocity 234.5 cm/s TR Peak Gradient 22.0 mmHg TR Mean Velocity 161.8 cm/s TR Mean Gradient 11.5 mmHg TR Velocity Time Integral 55.3 cm TV Peak E Velocity 73.0 cm/s Right Atrial Pressure 3.0 mmHg Pulmonary Artery Systolic Pressu 25.0 mmHg PV Peak Velocity 80.0 cm/s RV Acceleration Time 0.1 s RV Ejection Time 0.3 s RV AcT/ET 0.3 FINDINGS Left Ventricle Normal left ventricular size, systolic function and wall thickness, with no regional wall motion abnormalities. Normal diastolic function. Left ventricular ejection fraction is estimated at 65 %. Right Ventricle Normal right ventricular size and systolic function. Normal right ventricular systolic pressure. Right Atrium The right atrium is normal in size. Left Atrium The left atrium is normal in size. Mitral Valve Structurally normal mitral valve. Trace mitral valve regurgitation. Aortic Valve Structurally normal aortic valve without significant sclerosis or stenosis. There is no aortic regurgitation. Tricuspid Valve Structurally normal tricuspid valve. Pulmonic Valve Pulmonic valve not well visualized. Pericardium Normal pericardium without effusion. Aorta Normal ascending aorta dimension. IVC The inferior vena cava pulmonary and hepatic veins appear normal. CONCLUSIONS Normal left ventricular size, systolic function and wall thickness, with no regional wall motion abnormalities. Normal diastolic function. Left ventricular ejection fraction is estimated at 65 %. Structurally normal mitral valve. Trace mitral valve regurgitation. Dr. Keven Lambert MD (Electronically Signed) Final Date: 21 November 2021 07:24 S
[2021-11-20] MEDS: sodium chloride 0.9% 250 ML IV (14:19)
[2021-11-20] MEDS: acetaminophen 325 mg Tablet 650 MG PO (16:40)
[2021-11-20] MEDS: trazodone 50 mg Tablet PO (21:29)
[2021-11-20] MEDS: atorvastatin 40 mg Tablet PO (21:30)
[2021-11-21] VITALS (10 sets, daily range): BP systolic 101–137; BP diastolic 55–82; PULSE 56–90; RESP 14–19; TEMP 36.3–36.9; O2SAT 95–98
--- NOTE | 2021-11-21 06:56 | ECG_ITS ---
[facility] Test Date: 2021-11-21 Pat Name: Mignon Escobar Department: Room: 276 Gender: Female [employer] Reporter: Rhiannonellie Fuentesn : 1970 Requested By: Sherry Low Order Number: [id number] Christy MD: Twin Choudhary M.D. Interpretive Statements NAME OF STUDY: LEXISCAN SESTAMIBI STRESS TEST INDICATION: [Angina] Procedure: At the baseline, the blood pressure was 111/68 mmHg with a heart rate of 74 bpm. The electrocardiogram showed normal sinus rhythm, normal axis with normal ST and T's. The Lexiscan was infused over a period of 20 seconds. A total of 0.4 mg of Lexiscan was infused. The stress phase was continued for a total of 5 minutes. Heart rate was at the end of stress phase was 91 bpm and a blood pressure of 118/70 mmHg. The EKG at the peak infusion revealed since normal sinus rhythm with no significant ST-T wave changes. Sestamibi was injected 20 seconds after the Lexiscan infusion. Blood pressure at the end of recovery phase was 123/71 mmHg with a heart rate of 90 bpm. Conclusion: 1. Normal EKG response to Lexiscan infusion 2. No Lexiscan induced chest pain or cardiac arrhythmia. 3. Normal blood pressure and heart rate response. 4. Sestamibi/sestamibi perfusion scan pending; see separate report. Electronically Signed On 12-09-2021 11:58:22 CDT by Twin Choudhary M.D. [email or web address].All My Data/[id number]
--- NOTE | 2021-11-21 07:00 | NMCV_ITS ---
NM caitlin perf SPECT r/s* [id number] Mignon Escobar Age: 51 Gender: F : 1970 Exam Date: 11/21/2021 07:00 Ordering Phys: Sherry Low MD Technologist: BHUPINDER Hurst Exam Location: [facility] Indications: CHEST PAIN STRESS TEST [facility] IMAGE PROTOCOL Rest/Stress 1 Lexiscan Day Radiopharmaceutical Dose (mCi) Administration Site Administered by Rest: Tc-99m 10.8 IV BHUPINDER Alexander Sestamibi Stress:Tc-99m 32.5 IV BHUPINDER Alexander Sestamibi Rest: 21-Nov-2021 60 Discovery 630 Stress: 21-Nov-2021 30 Discovery 630 0.4mg Lexiscan. Images obtained in supine and prone position. SPECT RESULTS Technical Quality: Excellent Raw Data Analysis: Normal Image Corrections: No attenuation or motion correction applied Summed Stress Score: 0 Summed Rest Score: 1 Summed Difference Score: 0 PERFUSION FINDINGS There is small sized, fixed perfusion defect in the apical wall. This is consistent with small sized prior infarct in the LAD territory. No evidence of ischemia FUNCTIONAL RESULTS (calculated via Gated SPECT) Stress Image LV EF (%): 78 Stress EDV (mL):83 TID: 0.98 Stress ESV (mL):18 FUNCTIONAL FINDINGS: There is normal left ventricular systolic function. IMPRESSIONS 1. Abnormal myocardial perfusion imaging with small sized prior infarct in the LAD territory. 2. LV systolic function is normal Twin Choudhary MD (Electronically Signed) Final Date: 21 November 2021 09:41 S
--- NOTE | 2021-11-21 07:27 | PC.NURSE ---
received report, reviewed poc, assumed care of patient. pt resting comfortably in bed, no c/o chest pain, waiting for stress test
[2021-11-21] MEDS: regadenoson 0.4 Mg/5 ml Syringe IVP (07:48)
[2021-11-21] MEDS: aspirin 81 mg EC Tablet PO (09:30)
[2021-11-21] MEDS: nicotine 14 mg Patch 1 PATCH TRANSDERMA (09:30)
[2021-11-21] MEDS: pantoprazole DR 40 mg Tablet PO (09:30)
[2021-11-21] MEDS: ezetimibe 10 mg Tablet PO (09:30)
--- NOTE | 2021-11-21 11:41 | PM.PN ---
Subjective Subjective: Patient had chest pain which was radiating towards her left arm during Lexiscan At rest she is comfortable no active chest pain or shortness of breath Not motivated to quit smoking at all I requested Dr. Choudhary to evaluate her Stress test showing changes from prior infarct Bradycardia improved, did not qualify for sleep apnea overnight Vitals/I&O/Wt Last Vital Signs Temp 98.4 F 11/21/21 11:04 Pulse 68 11/21/21 11:04 Resp 18 11/21/21 11:04 BP 137/77 11/21/21 11:04 Pulse Ox 98 11/21/21 11:04 11/20/21 11/21/21 11/21/21 22:59 06:59 14:59 Intake Total 370 / 830 Output Total 750 / 750 Balance 370 / 830 -750 / 80 Weight last 48 hrs Weight 74.843 kg Weight 77.111 kg Physical Exam Narrative: Patient is laying comfortably in the bed No active chest pain Breathing well on room air Nonfocal neuro exam Abdomen soft Euvolemic Pleasant and cooperative Family at the bedside EOMI, PERRLA Data : 11/19/21 18:24 11/19/21 18:24 A&P Assessment and plan (1) Unstable angina: Status: Acute Plan Unstable angina Symptoms are mainly on exertion Active smoker Stress test did not show new changes, LAD territory infarctive changes from previous [place] Requested Dr. Choudhary to evaluate her today as well She can eat now Continue aspirin, Lipitor, lisinopril Echo did not show pulmonary hypertension EF 65% Check D-dimer Sinus bradycardia: Improved Did not qualify for sleep apnea Active smoker: Does not want to quit smoking, patient is stating that she would only quit smoking when she is 6 feet under Full code Cardiac diet DVT prophylaxis on board Attestations Medical Necessity Statement*: Patient will need cardiac evaluation today Time Spent in Patient Care: 30 Coding Level of Care Code Acute Configuration Specialist for Isis Matos Diagnoses Unstable angina I20.0
--- NOTE | 2021-11-21 12:17 | P.CONIM_ITS ---
Providers/Reason For Consult Consulting Physician/Specialty*: Twin Choudhary MD/Cardiology Reason for Consult*: Worsening chest pain Requesting Physician: Dr Jha Attending Physician: Ryan Jha MD Primary Care Provider: Daniel Villanueva History of Present Illness History of Present Illness Mignon Escobar is a 51 year old female with past medical history of coronary artery disease status post PCI to proximal LAD in 2019 who presented to the hospital with exertional chest pain. She had 1 episode prior to hospital presen tation when she started noticing substernal chest pain radiating to the left arm. It lasted for about 10 minutes. On taking sublingual nitro, the chest pain resolved. She has been having on and off for exertional chest pains for the last month. She underwent a stress test that showed prior infarct in LAD territory. However during the stress test she did have chest discomfort radiating to the left arm. During the hospitalization her troponins have not trended up. EKG does not show significant ischemic changes at this time. Echo shows normal LV systolic function with no regional wall motion abnormalities. Review of Systems General: Reports: 10 or more systems reviewed and unremarkable except in HPI and below Const: Denies: fever(s), chills or body aches Eyes: Denies: change in vision, blurry vision or photophobia ENMT: Reports: hoarseness; Denies: throat pain, enlarged tonsils, odynophagia or nasal congestion Card: Reports: chest pain; Denies: palpitations, irregular heart rhythm, edema, swelling of feet/ankles, lightheadedness, pre-syncope, dyspnea on exertion or orthopnea Resp: Denies: dyspnea, productive cough, non-productive cough, wheezing, stridor, pain on inspiration, change in phlegm color, hemoptysis or chest congestion GI: Denies: abdominal pain, nausea, vomiting, hematemesis, coffee ground emesis, dysphagia, heartburn, diarrhea, constipation, GI cramping, change in stool character, hematochezia or melena : Denies: flank pain, difficulty voiding, dysuria, urinary frequency, urinary urgency, urinary hesitancy or hematuria Musc: Denies: neck pain, back pain, extremity pain, joint swelling, joint warmth or deformity Neuro: Denies: headache(s), numbness in extremities, weakness in extremities, sensory changes, difficulty walking, frequent falls, dizziness, vertigo, behavioral changes, Slurred speech present or seizure-like activity Psych: Denies: anxiety, depression, suicidal ideation or homicidal ideation Endo: Denies: polyuria, polydipsia, tired all the time, cold intolerance or hot flashes Zach/Lymph: Denies: easy bruising or easy bleeding Medications/Allergies Home Medications Medication Instructions Recorded Confirmed Last Taken Type aspirin 81 mg tablet,delayed 81 mg PO DAILY 09/16/19 11/19/21 Unknown History release (Adult Aspirin Regimen) cyclobenzaprine 10 mg tablet 10 mg PO BID PRN 06/28/20 11/19/21 11/18/21 17:00 History nitroglycerin 0.4 mg sublingual 0.4 mg SUBLINGUAL Q5M PRN #30 tab 06/28/20 11/19/21 11/19/21 17:00 Rx tablet (Nitrostat) atorvastatin 40 mg tablet 40 mg PO BEDTIME #90 tab 05/05/21 11/19/21 Unknown Rx ezetimibe 10 mg tablet (Zetia) 10 mg PO DAILY #90 tab 05/05/21 11/19/21 Unknown Rx hydrochlorothiazide 25 mg tablet 25 mg PO DAILY #90 tab 05/05/21 11/19/21 Unknown Rx lisinopril 10 mg tablet 10 mg PO DAILY #90 tab 05/05/21 11/19/21 Unknown Rx trazodone 50 mg tablet 50 mg PO BEDTIME PRN 11/19/21 11/19/21 11/18/21 20:00 History Allergies Allergy/AdvReac Type Severity Reaction Status Date / Time bacitracin Allergy Unknown Verified 05/05/21 10:21 [From Triple Antibiotic] cephalexin [From Keflex] Allergy Unknown Verified 05/05/21 10:21 neomycin Allergy Unknown Verified 05/05/21 10:21 [From Triple Antibiotic] polymyxin B Allergy Unknown Verified 05/05/21 10:21 [From Triple Antibiotic] Current Medications Generic Name Dose Route Start Last Admin Trade Name Freq PRN Reason Stop Dose Admin Acetaminophen 650 mg 11/19/21 22:43 11/20/21 16:40 Acetaminophen 325 Mg Tablet PO 650 mg Q6H PRN Administration Mild/Mod Pain Or Temp >/= 101 Aspirin 81 mg 11/20/21 09:00 11/21/21 09:30 Aspirin 81 Mg Ec Tablet PO 81 mg DAILY MADI Administration Atorvastatin Calcium 40 mg 11/20/21 21:00 11/20/21 21:30 Atorvastatin 40 Mg Tablet PO 40 mg BEDTIME MADI Administration Ezetimibe 10 mg 11/20/21 09:00 11/21/21 09:30 Ezetimibe 10 Mg Tablet PO 10 mg DAILY MADI Administration Nicotine 1 patch 11/20/21 09:00 11/21/21 09:30 Nicotine 14 Mg Patch TRANSDERMA 1 patch DAILY MADI Administration Pantoprazole Sodium 40 mg 11/20/21 09:00 11/21/21 09:[address] 40 Mg Tablet PO 40 mg DAILY MADI Administration Trazodone HCl 50 mg 11/19/21 22:48 11/20/21 21:29 Trazodone 50 Mg Tablet PO 50 mg BEDTIME PRN Administration Insomnia PFSH Acute PFSH: Medical History Coronary artery disease Dyslipidemia Hypertension -continue to monitor vital signs -added low dose BB with improved BP control Nicotine dependence, cigarettes, with other nicotine-induced disorders Non-STEMI (non-ST elevated myocardial infarction) -presented as exertional chest pain; risk factors for CAD are HTN, chronic smoker, obesity, +FHx -noted elevated troponins with positive delta of 177 -no acute ischemic changes noted on ECG -telemetry monitoring -ROBSON -on Plavix, statin, ASA, therapeutic Lovenox -Cardiology consult by Dr. Arina mills -noted lipid panel, A1c -Echo: EF=60%, no RWMA, trace TR, trace TN -s/p cath; had stenting of proximal LAD Scoliosis Surgical History History of tubal ligation Family History Father CAD (coronary artery disease) She describes him having either an angiogram with angioplasty or something more invasive Cancer Lung cancer Mother Irregular heart rhythm Other Diabetes Social History Smoking and tobacco status: current every day smoker cigarettes Quit status (tobacco): quit date established Second hand smoke exposure: No Smoking risk assessment/counseling performed?: No Alcohol intake: current Alcohol intake frequency: holidays/special occasions only Female Reproductive History: Para: 2 Vitals/I&O/Wt Last Vital Signs Temp 98.4 F 11/21/21 11:04 Pulse 68 11/21/21 11:04 Resp 18 11/21/21 11:04 BP 137/77 11/21/21 11:04 Pulse Ox 98 11/21/21 11:04 11/20/21 11/21/21 11/21/21 22:59 06:59 14:59 Intake Total 370 / 830 Output Total 750 / 750 Balance 370 / 830 -750 / 80 Weight last 48 hrs Weight 165 lb Weight 170 lb Physical Exam Narrative: GENERAL: [] HEENT: Exam within normal limits. [] NECK: Supple without jugular vein distention. The carotid upstroke is normal without bruits. [] BACK: Exam normal. [] LUNGS: Clear. [] HEART: Regular rate and rhythm. [] ABDOMEN: Benign without organomegaly or tenderness. [] EXTREMITIES: No edema. [] NEUROLOGIC: Exam normal. [] SKIN: Unremarkable. [] Data : 11/19/21 18:24 11/19/21 18:24 A&P Assessment and plan (1) Chest pain: Status: Acute (2) Dyslipidemia: Status: Acute (3) Hypertension: Status: Chronic Qualifiers: Hypertension type: unspecified Qualified Code(s): I10 - Essential (primary) hypertension (4) Coronary artery disease: Status: Acute Qualifiers: Coronary Disease-Associated Artery/Lesion type: grayling artery [place] vs. transplanted heart: grayling heart Associated angina: with unspecified angina Qualified Code(s): I25.119 - Atherosclerotic heart disease of grayling coronary artery with unspecified angina pectoris (5) Nicotine dependence, cigarettes, with other nicotine-induced disorders: Status: Chronic Plan Patient has presented with typical chest pain symptoms on exertion. Symptoms are worsening over the last 1 month. Troponins did not trend up, no significant ischemic changes on EKG and LV systolic function is normal on echo. Stress test showed small sized for infarct in the LAD territory. However given ongoing on and off chest discomfort symptoms that are typical and significant symptoms during stress test, we will proceed with coronary angiogram to rule out CAD. Risks and benefits of the procedure been discussed with the patient. She understands the risks and benefits and wants to proceed with the procedure. Continue aspirin. Smoking cessation advised strongly. Thank you for involving us with the care of this patient. We will continue to follow. Please call with questions. Consult Attestations Medical Necessity Statement: Care expected to cross 2 midnights. Coding Level of Care Code Acute Ordnance Equipment Worker for Isis Matos Diagnoses Chest pain R07.9 Dyslipidemia E78.5 Hypertension I10 Hypertension type: unspecified Coronary artery disease I25.119 Coronary Disease-Associated Artery/Lesion type: [place] artery [place] vs. transplanted heart: grayling heart Associated angina: with unspecified angina Nicotine dependence, cigarettes, with other nicotine-induced disorders F17.218
[2021-11-21] MEDS: enoxaparin 40 mg/0.4 mL Syringe SUBCUT (13:15)
[2021-11-21 13:21] LABS: D Dimer 0.34 ug/mIFEU (0-0.59)
[2021-11-21] MEDS: acetaminophen 325 mg Tablet 650 MG PO (14:05)
[2021-11-21] MEDS: atorvastatin 40 mg Tablet PO (21:26)
[2021-11-21] MEDS: trazodone 50 mg Tablet PO (21:29)
[2021-11-22] VITALS (27 sets, daily range): BP systolic 99–138; BP diastolic 56–93; PULSE 60–86; RESP 16–27; TEMP 36.8–37; O2SAT 94–98
[2021-11-22] MEDS: sodium chloride 0.9% 1,000 ML 50 ML IV (06:18)
--- NOTE | 2021-11-22 06:28 | XACV_ITS ---
Exam Room: [facility] Ht: 157 cm Wt: 75 kg BSA: 1.84 m2 Gender: Female : 1970 Any Known Allergies: Other Exam Priority: Routine Procedure(s): Procedure Description: Diagnostic procedure Procedure Description: Left Heart Catheterization Procedure Description: Left ventriculography Procedure Description: Coronary Angiography Diagnostic Cath Status: Urgent Diagnostic Findings * Right Coronary Artery has moderate 30% stenosis in the proximal vessel. There is another 30-40% stenosis in the mid RCA. * INDICATION: 51 year old female with past medical history of coronary artery disease status post PCI to proximal LAD in 2019 who presented to the hospital with exertional chest pain. She underwent a stress test that showed prior infarct in LAD territory. However during the stress test she did have chest discomfort radiating to the left arm. Given on going chest pain symptoms, we plan to proceed to coronary angiogram. * Mid Left Anterior Descending to Distal Left Anterior Descending: Chronic total occlusion, GUEVARA: 0 flow. Has good collateral flow to the apical to distal vessel Prior to total occluded mid segment, LAD has patent proximal to mid stent and a patent large sized diagonal artery.. * Left Main has no disease. * Circumflex has no disease. * Coronary angiography shows right dominance. Conclusions 1. Chronic total occlusion of mid to distal LAD with good collateral flow 2. to 3. apical to distal vessel.. 4. Normal left ventricular systolic function. Ejection fraction of 65%. Recommendations * Maximize medical therapy. Ranexa for chest discomfort symptoms. No significant ischemia seen on stress testing. * In case symptoms do not resolve in future, can consider HOME PLANNING CONSULTANT SALESPERSON intervention. * Aggressive risk factor modification. * Outpatient cardiology follow up in 4 weeks. Interventional RX Recommendation: medical therapy and/or counseling Diagnostic RX Recommendation: medical therapy and/or counseling Ventriculography Ejection Fraction: 65.0 % Pressures Phase:Rest AO : 108 / 67 ( 87 ) @ 8:45:00 AM 111 / 69 ( 90 ) @ 8:45:00 AM LV : 116 / -1 / 20 @ 8:44:00 AM 112 / 0 / 20 @ 8:45:00 AM 114 / -1 / 20 @ 8:45:00 AM Valves Phase:DefaultPhase AV : 7.0 @ 7:54:13 AM AV Mean Gradient: 14.0 @ 7:54:13 AM Clinical Evaluation EBL: 5mL-10mL Procedural Details Procedure Consent Obtained. Admit Source: In Patient. Pre-Procedure Time Out. Does the consent match the physician's order: Yes. Accurate & Complete Informed Consent: Yes. Inpatient/Outpatient History & Physical on Chart: Yes. If H&P is completed, is and addenduem needed: No; If yes, is the addendum complete: No. Visualize and Verify Site with Patient/Guarantor: N/A. Relevant Radiology Images available: No. The risks, benefits, and alternatives of sedation and/or procedure were discussed by physician. The patient agrees to continue. Procedure started. [facility] Clinical Fraility Score: 3: Managing Well. 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 Chest Pain Symptom Assessment: Typical Angina Symptoms. Correct patient, site and procedure confirmed by cath team. Current diagnosis: Unstable angina. PERRLA. Strong, equal hand press set up bilaterally. Lungs clear x 5 lobes. IV Site on Arrival: 22 gauge in the left hand. IV Fluids: 0.9% NaCl at KVO. 50 mL infused prior to director labor standards. Pre Procedural Pulses: bilateral radial was 3+. Pre Procedural Pulses: bilateral posterior tibial was 3+. Pre Procedural Pulses: bilateral dorsalis pedis was 3+. Oxygen started at 2liters/min via nasal canula. right radial was prepped with chloroprep then draped in the usual sterile fashion. right groin was prepped with chloroprep then draped in the usual sterile fashion. Physician notified. Baseline sample Acquired. HR: 0 BPM. Physician arrived. Physician scrubbed in. Immediate Pre-Procedure Time Out. Correct Patient: Yes; Correct Procedure: Yes; Correct Site: Yes; Correct Patient Position: Yes; Correct Supplies: Yes; Dried Flammable Prep: Yes; Blood Products Available: No;. Lidocaine 1% infiltrated to the right radial. Arterial access obtained. A 5 english TIG catheter in over wire. Wire out. Multiple views taken of left coronary artery. Catheter redirected to the RCA. Multiple views taken of right coronary artery. Catheter removed over the standard wire. A 5 english Angled Pig catheter in over wire. EDP Sample taken: LV 116/-2,20; HR: 68 BPM; SpO2: 96%. LV gram performed in HARRIS @ 10 mL/second for a total of 30 mL. EDP Sample taken: LV 112/-1,20; HR: 69 BPM; SpO2: 96%. Pullback taken: LV 114/-2,20; AO 108/67(87); Mean: 14mmHg, Peak to Peak: 7mmHg, SEP: 7sec/min; HR: 67 BPM; SpO2: 94%. Catheter out. Physician scrubbed out. Total IV fluids: 41 mL. Medication's Wasted: Lidocaine 1% = 1 mL. Medication's Wasted: Nitro = 49.8 mg. Medication's Wasted: Heparin = 1000 unit. Medication's Wasted: Other = Fentanyl 50 mcg. A TR Band was successful obtaining hemostatsis at the Right Radial artery insertion site. Post-op diagnosis: Chronic total occlussion LAD. Complications: None. Estimated blood loss: 5mL-10mL. Responsiveness - Normal response to verbal stimuli; alert and oriented, PERRLA. Airway - Unaffected, no intervention required; spontaneous ventilation. Circulation: W/N/L, pulses unchanged. Nausea/Vomiting: No. Post Procedure: Pulses reassessed and unchanged. PERRLA. Strong, equal hand press set up bilaterally. No VTE prophylaxis required. Procedure completed. Patient transferred by wheelchair to [facility]. Access Site Site: Right Radial artery Sheath Size: 6 Fr Hemostasis Method: TR Band Hemostasis Success: Successful Procedure Medications Start: 7:25 AM Stop: 7:25 AM Medication: Fentanyl Amount: 50 mcg Route: I.V. Start: 7:27 AM Stop: 7:27 AM Medication: Versed Amount: 1 mg Route: I.V. Start: 7:33 AM Stop: 7:33 AM Medication: Nitrogylcerin Amount: 200 mcg Route: I.A. Start: 7:35 AM Stop: 7:35 AM Medication: Heparin Amount: 5000 units Route: I.V. Start: 7:38 AM Stop: 7:38 AM Medication: Versed Amount: 1 mg Route: I.V. I, the attending physician, have reviewed and verified all procedure medications. Yes, all medications given per verbal order History/Risk Factors Hypertension: Yes Dyslipidemia: Yes Peripheral Arterial Disease (PAD): No Myocardial Infarction (PA): No Obesity: No Renal Disease: No Tobacco Use: Former Prior Interventions PCI: No CABG: No Valve Surgery: No Report Signatures Finalized by Twin Choudhary MD on 11/30/2021 11:23 AM
--- NOTE | 2021-11-22 07:15 | W.PM.OPSUD ---
Surgery/Procedure H&P Update DATE OF PROCEDURE: November 22, 2021 DATE H&P PERFORMED: 11/21/21 H&P UPDATE INFORMATION: I have reviewed H&P completed within last 30 days, I have examined patient prior to procedure and No changes to prior documentation PREOP DIAGNOSIS: Worsening angina/abnormal stress test PRIMARY INDICATION FOR PROCEDURE: Worsening angina PLANNED PROCEDURE: Operation Date: 11/22/21 07:00 Proposed Procedures p Cardiac Catheterization c Poss PCI(Left) - Twin Choudhary M.D Possible percutaneous coronary intervention PATIENT REASSESSED PRIOR TO SEDATION, WITH NO CHANGE NOTED: Yes PHYSICAL EXAM: alert, oriented x 3, clear to auscultation bilaterally and regular rate & rhythm AIRWAY EVAL/ANESTHESIA PLAN: ASA III, Local Anesthesia, Risks, benefits & alternatives of sedation and/or procedure discussed and Patient agrees to continue as planned ADDITIONAL INFORMATION: Moderate sedation
--- NOTE | 2021-11-22 08:22 | PM.PN ---
Subjective Subjective: Patient is doing well. No current complaints of chest pain. 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 EF is normal Vitals/I&O/Wt Last Vital Signs Temp 98.6 F 11/22/21 04:00 Pulse 62 11/22/21 06:00 Resp 18 11/22/21 04:00 BP 110/56 11/22/21 04:00 Pulse Ox 95 11/22/21 04:00 11/21/21 11/22/21 11/22/21 22:59 06:59 14:59 Intake Total 170 / 410 Balance 170 / 410 Physical Exam Narrative: GENERAL: [] HEENT: Exam within normal limits. [] NECK: Supple without jugular vein distention. The carotid upstroke is normal without bruits. [] BACK: Exam normal. [] LUNGS: Clear. [] HEART: Regular rate and rhythm. [] ABDOMEN: Benign without organomegaly or tenderness. [] EXTREMITIES: No edema. [] NEUROLOGIC: Exam normal. [] SKIN: Unremarkable. [] Data : 11/19/21 18:24 11/19/21 18:24 A&P Assessment and plan (1) Chest pain: Status: Acute (2) Dyslipidemia: Status: Acute (3) Hypertension: Status: Chronic Qualifiers: Hypertension type: unspecified Qualified Code(s): I10 - Essential (primary) hypertension (4) Coronary artery disease: Status: Acute Qualifiers: Coronary Disease-Associated Artery/Lesion type: hoh artery [place] vs. transplanted heart: hoh heart Associated angina: with unspecified angina Qualified Code(s): I25.119 - Atherosclerotic heart disease of hoh coronary artery with unspecified angina pectoris (5) Nicotine dependence, cigarettes, with other nicotine-induced disorders: Status: Chronic Plan Patient underwent coronary angiogram today that showed CLINICAL DOCUMENTATION SPECIALIST of mid to distal LAD with good collaterals. Prior proximal LAD stents are patent. She has a large sized diagonal artery that is patent. RCA has mild to moderate disease LV systolic function is normal. We will medically manage her chest discomfort. Benefit for revascularization of CLINICAL DOCUMENTATION SPECIALIST is questionable given no significant ischemia seen on stress test. Continue aspirin and high intensity statin therapy. Add low-dose Imdur 30 mg daily. We will also add Ranexa 500 mg twice daily. If bradycardia improves, can be started on low-dose of beta-haley. Smoking cessation advised strongly. Outpatient cardiology follow-up with Dr. Santa in 4 weeks Thank you for involving us with the care of this patient. Patient is stable to be discharged from cardiology standpoint. Please call with questions. Attestations Medical Necessity Statement*: Care expected to cross 2 midnights. 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 transplanted heart: hoh heart Associated angina: with unspecified angina Nicotine dependence, cigarettes, with other nicotine-induced disorders F17.218
[2021-11-22] MEDS: ezetimibe 10 mg Tablet PO (08:52)
[2021-11-22] MEDS: aspirin 81 mg EC Tablet PO (08:53)
[2021-11-22] MEDS: nicotine 14 mg Patch 1 PATCH TRANSDERMA (08:53)
[2021-11-22] MEDS: lisinopril 5 mg Tablet PO (08:53)
[2021-11-22] MEDS: pantoprazole DR 40 mg Tablet PO (08:53)
--- NOTE | 2021-11-22 16:30 | PM.DCS ---
Discharge Providers Date of Admission: 11/19/21 21:52 Date of Discharge: November 22, 2021 Attending Provider at Admission: Sherry Low MD Attending Provider at Discharge: Ashley Redding MD Primary Care Provider: Daniel Villanueva Diagnoses at Discharge Discharge Diagnosis (1) Chest pain: Status: Resolved (2) Dyslipidemia: Status: Acute (3) Hypertension: Status: Chronic Qualifiers: Hypertension type: unspecified Qualified Code(s): I10 - Essential (primary) hypertension Permanent problem details: -continue to monitor vital signs -added low dose BB with improved BP control (4) Coronary artery disease: Status: Acute Qualifiers: Associated angina: with unspecified angina Coronary Disease-Associated Artery/Lesion type: [place] artery [place] vs. transplanted heart: [place] heart Qualified Code(s): I25.119 - Atherosclerotic heart disease of [place] coronary artery with unspecified angina pectoris (5) Nicotine dependence, cigarettes, with other nicotine-induced disorders: Status: Chronic Reason for Visit Reason for Visit: CP Brief History: As per HPI Mignon Escobar is a 51 year old female with PMH smoking, NSTEMI 06/2019?with PCI to proximal LAD?presenting today with chest pain that started at 5PM. Located in the center of chest, radiating to left arm, associated with palpitations and light headedness. Pain lasted approximately for 10 minutes.? Eventually relieved after she presented to the ER and received sublingual nitro.? Patient states she has been having similar pain on and off at least for the past month.? Typically episodes are associated with exertion.? Today's episode was associated with trying to climb uphill.? States compliance with all of her medications. EKG today does not show any acute ST-T wave changes. Hospital Course Hospital Course Patient underwent angiogram that showed BACTERIOLOGY PROFESSOR of mid to distal LAD with good collaterals.?Prior proximal LAD stents are patent.? She has a large sized diagonal artery that is patent.? RCA has mild to moderate disease LV systolic function is normal.? We will medically manage her chest discomfort.? Benefit for revascularization of BACTERIOLOGY PROFESSOR is questionable given no significant ischemia seen on stress test. Continue aspirin and high intensity statin therapy.? Add low-dose Imdur 30 mg daily.? We will also add Ranexa 500 mg twice daily.? If bradycardia improves, can be started on low-dose of beta-haley. Smoking cessation advised strongly. Outpatient cardiology follow-up with Dr. Santa in 4 weeks Physical Exam Narrative: Patient is laying comfortably in the bed No active chest pain Breathing well on room air Nonfocal neuro exam Abdomen soft Euvolemic Pleasant and cooperative Family at the bedside EOMI, PERRLA Discharge Data Studies Completed and Pending Completed Studies During Hospitalization Category Date Time Status Sestamibi Stress Test Request Routine Exams 11/21/21 06:56 Draft XR chest 1V portable [id number] Stat Exams 11/19/21 19:26 Completed NM caitlin perf SPECT r/s* [id number] Routine Nuc Med 11/21/21 07:00 Completed CV. echo complete* [id number] Routine Ultrasound 11/20/21 13:04 Completed Pending at discharge Category Date Time Status COMMUNITY ENGAGEMENT REPRESENTATIVE request for service Routine Exams 11/22/21 06:28 Taken Sestamibi Stress Test Request Routine Exams 11/19/21 23:05 Stop Req Radiology Impressions Chest X-Ray 11/19/21 19:26 IMPRESSION: No acute findings. Laboratory Results WBC 8.9 10^3/uL (4.0-10.0) 11/19/21 18:24 RBC 4.77 10^6/uL (4.1-5.3) 11/19/21 18:24 Hgb 14.3 g/dL (11.5-15.3) 11/19/21 18:24 Hct 43.0 % (37.0-47.0) 11/19/21 18:24 MCV 90.1 fl (81-99) 11/19/21 18:24 MCH 30.0 pg (28.0-34.0) 11/19/21 18:24 MCHC 33.3 g/dL (30.0-36.0) 11/19/21 18:24 RDW 13.0 % (12.1-15.1) 11/19/21 18:24 Plt Count 225 10^3/cmm (130-400) 11/19/21 18:24 MPV 10.7 fL (7.4-10.4) H 11/19/21 18:24 Neut % (Auto) 64.3 % 11/19/21 18:24 Lymph % (Auto) 25.2 % 11/19/21 18:24 Weston % (Auto) 7.7 % 11/19/21 18:24 Eos % (Auto) 2.1 % 11/19/21 18:24 Baso % (Auto) 0.4 % 11/19/21 18:24 Neut # (Auto) 5.74 10^3/uL (1.8-7.7) 11/19/21 18:24 Lymph # (Auto) 2.3 10^3/uL (0.8-4.8) 11/19/21 18:24 Weston # (Auto) 0.7 10^3/uL (0.2-0.9) 11/19/21 18:24 Eos # (Auto) 0.2 10^3/uL (0.0-0.8) 11/19/21 18:24 Baso # (Auto) 0.0 10^3/uL (0.0-0.1) 11/19/21 18:24 Nucleated RBC % (auto) 0 % 11/19/21 18: Nucleated RBCs # 0.0 /100WBC 11/19/21 18:24 PT 13.00 SECONDS (12.1-14.9) 11/19/21 21:45 INR 0.95 (0.8-1.2) 11/19/21 21:45 APTT 34.0 SECONDS (23.9-36.7) 11/19/21 21:45 D-Dimer 0.34 ug/mIFEU (0-0.59) 11/21/21 12:56 Sodium 136 mmol/L (136-145) 11/19/21 18:24 Potassium 3.6 mmol/L (3.5-5.1) 11/19/21 18:24 Chloride 97 mmol/L (98-107) L 11/19/21 18:24 Carbon Dioxide 25 mmol/L (22-29) 11/19/21 18:24 Anion Gap 17.6 (5-19) 11/19/21 18:24 BUN 10 mg/dL (6-20) 11/19/21 18:24 Creatinine 0.8 mg/dL (0.5-0.9) 11/19/21 18:24 GFR Calculation 76.2 mL/min (90-130) L 11/19/21 18:24 Glucose 108 mg/dL (65-115) 11/19/21 18:24 Calculated Osmolality 282 mOsm/kg (285-295) L 11/19/21 18:24 Calcium 9.1 mg/dL (8.5-10.5) 11/19/21 18:24 Magnesium 2.0 mg/dL (1.7-2.3) 11/19/21 18:24 Total Bilirubin 0.3 mg/dL (0.15-1.2) 11/19/21 18:24 AST 16 U/L (0-32) 11/19/21 18:24 ALT 12 U/L (0-33) 11/19/21 18:24 Alkaline Phosphatase 85 IU/L (35-105) 11/19/21 18:24 Troponin T Baseline 6 ng/L (0-10) 11/19/21 18:24 Troponin T 120 Minute 7.21 ng/L (0-10) 11/19/21 20:44 Delta Troponin T 1.21 ABS# (0-10) 11/19/21 20:44 Troponin T Hi Sens 6Hr 7.92 ng/L (0-10) 11/20/21 01:45 Troponin T Hi Sens 6Hr Delta 1.92 ng/L (0-12) 11/20/21 01:45 NT-Pro-B Natriuret Pep 65 pg/mL (0-125) 11/19/21 18:24 Total Protein 6.6 g/dL (6.6-8.7) 11/19/21 18:24 Albumin 4.5 g/dL (3.5-5.2) 11/19/21 18:24 Globulin 2.1 g/dL (1.3-4.6) 11/19/21 18:24 Lipase 30 U/L (13-60) 11/19/21 18:24 TSH 2.02 uIU/mL (0.27-4.20) 11/19/21 18:24 HCG, Qual Negative (Negative) 11/19/21 20:30 Vitals Last Vital Signs Temp 98.6 F 11/22/21 04:00 Pulse 75 11/22/21 16:00 Resp 17 11/22/21 16:00 BP 111/71 11/22/21 16:00 Pulse Ox 95 11/22/21 16:00 Discharge Plan Discharge Patient Disposition: Home Condition: Stable Prescriptions: New lisinopril 5 mg Tablet 5 mg PO DAILY 30 Days Qty: 30 0RF isosorbide mononitrate 30 mg Tablet Extended Release 24 Hr 30 mg PO DAILY 30 Days Qty: 30 0RF ranolazine 500 mg Tablet Extended Release 12 Hr 500 mg PO BID 30 Days Qty: 60 0RF Continued aspirin [Adult Aspirin Regimen] 81 mg tablet,delayed release (DR/EC) 81 mg PO DAILY 0RF cyclobenzaprine 10 mg tablet 10 mg PO BID PRN (Reason: Muscle Spasm) 0RF Nitrostat 0.4 mg tablet, sublingual 0.4 mg sublingual Q5M PRN (Reason: Chest Pain) Qty: 30 6RF ezetimibe [Zetia] 10 mg tablet 10 mg PO DAILY Qty: 90 4RF atorvastatin 40 mg tablet 40 mg PO BEDTIME Qty: 90 2RF trazodone 50 mg Tablet 50 mg PO BEDTIME PRN (Reason: Insomnia) 0RF Discontinued hydrochlorothiazide 25 mg tablet 25 mg PO DAILY Qty: 90 4RF lisinopril 10 mg tablet 10 mg PO DAILY Qty: 90 2RF Discharge Orders: Discharge Order (Routine); Ordered 11/22/21 Ordered By: Ashley Redding Referrals: Leni Rose FNP [Nurse Practitioner] - 11/29/21 10:15 am Corinne Santa MD [Physician] - 01/12/22 11:15 am Daniel Villanueav [Primary Care Provider] - 11/24/21 11:40 am (APPOINTMENT AT [facility]) Discharge Diet: Cardiac and Low Salt Discharge Activity: Resume usual activity Patient Instructions: Isosorbide Dinitrate (By mouth), Ranolazine (By mouth), Angina (DC), Cigarette Smoking and Your Health (GEN), Left Heart Catheterization (DC), Opioid Safety Activity Restrictions/Additional Instructions: no lifting more than 5 pounds for a week. Discharge Attestations Time Spent in Discharge Care*: less than 30 min Status at Discharge: Cognitive status at discharge: cognitively intact, Behavioral status at discharge: cooperative, Quality Metrics Clinical Quality Measures [ No reported AMI, CVA or VTE this stay] Coding Level of Care Code Acute Chg FW DC note Diagnoses Chest pain R07.9 Dyslipidemia E78.5 Hypertension I10 Hypertension type: unspecified Coronary artery disease I25.119 Associated angina: with unspecified angina Coronary Disease-Associated Artery/Lesion type: [place] artery [place] vs. transplanted heart: [place] heart Nicotine dependence, cigarettes, with other nicotine-induced disorders F17.218
--- NOTE | 2021-11-22 16:53 | PC.NURSE ---
dc'd pts piv. tr band off, dressing in place, no s/s of hematoma or other complications. discharge instructions given. rx sent to [facility] in [place]. pt verbalized understanding of post cath care, follow up appointments and medications. I strongly encouraged her to quit smoking and provided written information. pt taken to the lobby per her request to wait for her ride via wheelchair. all belongings taken with patient.
== END 2021-11-22 16:56 | disposition home or self-care (01) ==
LOC: ER 21:19 → MEDSURG 11-20 00:13
PROVIDERS: Internal Medicine; Admitting Provider Student in an Organized Health Care Education/Training Program; Emergency Provider Emergency Medicine; PCP Nurse Practitioner Family; Visit Provider Internal Medicine
DX: I25.119 Atherosclerotic heart disease of native coronary artery with unspecified angina pectoris (principal); R07.9 Chest pain, unspecified; E78.5 Hyperlipidemia, unspecified; I25.2 Old myocardial infarction; Z82.49 Family history of ischemic heart disease and other diseases of the circulatory system; F17.210 Nicotine dependence, cigarettes, uncomplicated; Z79.82 Long term (current) use of aspirin; I10 Essential (primary) hypertension
CPT/HCPCS: 36415; 71045; 78452; 80053; 81025; 83690; 83735; 83880; 84443; 84484; 85025; 85378; 85610; 85730; 93005; 93017; 93306; 93452; 93458; 96360; 96372; 99152; 99153; 99285; A9500; C1769; C1887; C1894; G0378; J1644; J1650; J2250; J2785; J3010; J3490; J7030; J7050; Q0163; Q9967

== ENCOUNTER → 2021-11-29 10:49 | Outpatient (BNVA) | payer OTHER, SELFPAY | PROVIDERS: PCP Nurse Practitioner Family; Visit Provider Nurse Practitioner Family | DX: I25.119 Atherosclerotic heart disease of native coronary artery with unspecified angina pectoris (principal); I10 Essential (primary) hypertension | CPT/HCPCS: 80048 ==

== ENCOUNTER → 2022-07-23 08:11 | Outpatient (BNVA) | payer OTHER, BC, MEDICAID, SELFPAY | PROVIDERS: PCP Nurse Practitioner Family; Visit Provider Nurse Practitioner Family | DX: E78.5 Hyperlipidemia, unspecified (principal) | CPT/HCPCS: 80061 ==

== ENCOUNTER 2022-09-12 11:43 | Outpatient (CLI) | payer OTHER, BC, SELFPAY ==
[2022-09-12 13:55] VITALS: PULSE 91; RESP 18; O2SAT 99
[2022-09-12] MEDS: albuterol 2.5 mg/3 mL Neb INHALATION (13:55)
[2022-09-12 14:00] VITALS: PULSE 95
== END 2022-09-12 11:44 | disposition home or self-care (01) ==
PROVIDERS: PCP Family Medicine; Visit Provider Dermatology
DX: Z02.71 Encounter for disability determination (principal); R06.02 Shortness of breath
CPT/HCPCS: 94060; J7613

== ENCOUNTER 2022-09-12 11:50 | Outpatient (CLI) | payer OTHER, BC, MEDICAID, SELFPAY ==
--- NOTE | 2022-09-12 12:00 | US_ITS ---
WS: [id number] ULTRASOUND SOFT TISSUES LEFT neck. HISTORY: supraclavicular swelling left side COMPARISON: None available. TECHNIQUE: 2-D and color Doppler imaging is submitted. No soft tissue masses noted in the LEFT supraclavicular region. Normal appearance of the soft tissues . No shadowing or cystic change. RIGHT supraclavicular region for comparison is similar. US/US soft tissue head neck [id number] IMPRESSION: Negative soft tissue ultrasound LEFT supraclavicular region.
--- NOTE | 2022-09-12 13:37 | XR_ITS ---
WS: [id number] Exam: XR chest 2V* [id number] Date/Time of Exam: 09/12/2022 1:38 PM Reason For Exam: EVAL FOR COPD/SHORT OF BREATH Comparison 11/19/2021. The lungs are clear and fully expanded. No pleural effusions. Normal cardiomediastinal silhouette. Rubin [place] structures are intact. Dextroscoliosis of the lower T-spine. XR/XR chest 2V* [id number] IMPRESSION: 1. No acute cardiopulmonary process.
== END 2022-09-12 11:51 | disposition home or self-care (01) ==
LOC: RAD 11:52
PROVIDERS: PCP Family Medicine; Visit Provider Internal Medicine
DX: R22.2 Localized swelling, mass and lump, trunk (principal); R06.02 Shortness of breath
CPT/HCPCS: 71046; 76536

== ENCOUNTER → 2022-10-30 11:02 | Outpatient (BNVA) | payer BC, SELFPAY | PROVIDERS: PCP Family Medicine; Visit Provider Internal Medicine | DX: E04.2 Nontoxic multinodular goiter (principal); R53.83 Other fatigue | CPT/HCPCS: 36415; 84439; 84443 ==

== ENCOUNTER 2022-12-17 06:48 | Outpatient (CLI) | payer BC, MEDICAID, SELFPAY ==
--- NOTE | 2022-12-17 07:30 | CT_ITS ---
WS: [id number] LDCT LUNG CANCER SCREENING HISTORY: Lung cancer screen TECHNIQUE: Axial imaging performed from the apices to 1 cm below the costophrenic angles. Coronal and sagittal reformats are submitted with axial MIP series. All CT scans at [facility] use at least one of these dose optimization techniques: automated exposure control; mA and/or kV adjustment per patient size (includes targeted exams where dose is matched to clinical indication); or iterativ e reconstruction. DLP: 67.77 mGy.cm DIvol: Mean CTDIvol: 1.50 (mGy) COMPARISON: None available. Diagnostic quality: Limited. Lungs: Lung volumes are decreased due to poor inspiratory effort. Crowding of the lung markings and h azy attenuation from poor inspiration. Some of the hazy attenuation and groundglass changes with prob ably improvement with better inspiratory effort. No mass or pulmonary nodule identified. Heart: Normal size heart with no pericardial effusion.. Coronary stent in the LAD versus focal calcif ication. Mild pericardial thickening. Other findings: No adenopathy. Small hiatal hernia. Incompletely visualized adrenal glands. Mild hepa tic steatosis. CT/CT lung screening [id number] IMPRESSION: LUNG-RADS: 1-Negative FOLLOW UP: 12 Month: Continue annual screening with LDCT OTHER FINDINGS (S MODIFIER): None.
== END 2022-12-17 06:49 | disposition home or self-care (01) ==
LOC: RAD 06:50
PROVIDERS: PCP Family Medicine; Visit Provider Internal Medicine Pulmonary Disease
DX: Z12.2 Encounter for screening for malignant neoplasm of respiratory organs (principal); F17.218 Nicotine dependence, cigarettes, with other nicotine-induced disorders; R07.9 Chest pain, unspecified
CPT/HCPCS: 71271

== ENCOUNTER 2022-12-25 08:43 | Outpatient (CLI) | payer BC, MEDICAID, SELFPAY ==
[2022-12-25 09:12] VITALS: PULSE 94; RESP 18; O2SAT 98
[2022-12-25] MEDS: albuterol 2.5 mg/3 mL Neb INHALATION (09:12)
[2022-12-25 09:17] VITALS: PULSE 94
== END 2022-12-25 08:44 | disposition home or self-care (01) ==
LOC: RT 08:44
PROVIDERS: PCP Family Medicine; Visit Provider Internal Medicine Pulmonary Disease
DX: F17.218 Nicotine dependence, cigarettes, with other nicotine-induced disorders (principal); R07.9 Chest pain, unspecified; R06.09 Other forms of dyspnea; R94.2 Abnormal results of pulmonary function studies
CPT/HCPCS: 94060; 94618; 94726; 94729; J7613

== ENCOUNTER → 2023-02-04 09:52 | Outpatient (BNVA) | payer BC, MEDICAID, SELFPAY | PROVIDERS: PCP Family Medicine; Visit Provider Internal Medicine Pulmonary Disease | DX: J30.2 Other seasonal allergic rhinitis (principal); R06.02 Shortness of breath; R53.83 Other fatigue; G47.19 Other hypersomnia; R06.09 Other forms of dyspnea; Z71.6 Tobacco abuse counseling; F17.218 Nicotine dependence, cigarettes, with other nicotine-induced disorders; I25.119 Atherosclerotic heart disease of native coronary artery with unspecified angina pectoris; G47.33 Obstructive sleep apnea (adult) (pediatric); J44.9 Chronic obstructive pulmonary disease, unspecified | CPT/HCPCS: 36415; 82785; 85025; 86003 ==

== ENCOUNTER 2023-04-23 07:37 | Outpatient (CLI) | payer BC, MEDICAID, SELFPAY ==
[2023-04-23 08:25] VITALS: BMI 34.7
--- NOTE | 2023-04-23 08:29 | NMCV_ITS ---
NM caitlin perf SPECT r/s* [id number] Mignon Escobar Age: 52 Gender: F : 1970 Exam Date: 04/23/2023 09:12 Ordering Phys: Leni Rose Technologist: BHUPINDER Hurst Exam Location: [facility] Indications: MYOCARDIAL INFARCT STRESS TEST Please see separate stress test report in [facility] for full findings IMAGE PROTOCOL Rest/Stress 1 Lexiscan Day Radiopharmaceutical Dose (mCi) Administration Site Administered by Rest: Tc-99m 10.4 IV BHUPINDER Alexander Sestamibi Stress:Tc-99m 32.9 IV BHUPINDER Alexander Sestamibi Rest: 23-Apr-2023 60 Discovery 630 Stress: 23-Apr-2023 30 Discovery 630 0.4mg Lexiscan. Images obtained in supine and prone position. SPECT RESULTS Technical Quality: Excellent Raw Data Analysis: Normal Image Corrections: No attenuation or motion correction applied Summed Stress Score: 1 Summed Rest Score: 2 Summed Difference Score: 0 PERFUSION FINDINGS Small size perfusion abnormality of mild severity of apical lateral wall on rest images with subtle reversibility on supine stress images and improved tracer uptake on prone stress images. This likely represents attenuation artifact. FUNCTIONAL RESULTS (calculated via Gated SPECT) Stress Image LV EF (%): 78 Stress EDV (mL):60 TID: 0.92 Stress ESV (mL):13 FUNCTIONAL FINDINGS: The left ventricle is normal in size. Transient Ischemia Dilatation of 0.92. The left ventricular ejection fraction is normal with a value of 78%. There is normal left ventricular wall thickening with no regional wall motion abnormality. Normal end-diastolic and end-systolic volumes. IMPRESSIONS 1. Myocardial perfusion imaging is normal. Attenuation artifact noted in apical lateral wall. 2. Overall left ventricular systolic function is normal without regional wall motion abnormalities, LVEF=78%. 3. EKG portion of the study will be reported separately. 4. Scan indicates low risk for cardiac events. Corinne Santa MD (Electronically Signed) Final Date: 23 April 2023 13:38 S
--- NOTE | 2023-04-23 08:29 | ECG_ITS ---
[facility] Test Date: 2023-04-23 Pat Name: Mignon Escobar Department: Room: Gender: Female Pier Runner: Michaelsegundo Cleary : 1970 Requested By: Leni Rose Order Number: [id number] Christy MD: Corinne Santa M.D. Interpretive Statements NAME OF STUDY: LEXISCAN SESTAMIBI STRESS TEST INDICATION: Exertional chest pressure PROCEDURE: At the baseline, the blood pressure was 127/89 mm Hg with a heart rate of 75 bpm. The electrocardiogram showed sinus rhythm, normal axis with non specfic ST changes. Artifact. ??? The Lexiscan was infused over a period of 20 seconds. A total of 0.4 milligrams of Lexiscan was infused. The stress phase was continued for a total of 5 minutes. Heart rate at the end of the stress phase was 102 bpm with a blood pressure of 138/81 mm Hg. The EKG at the peak infusion revealed sinus tachycardia with no significant ST-T wave changes. ??? Sestamibi was injected 20 seconds after the Lexiscan infusion. ??? Blood pressure at the end of the recovery phase was 128/77 mm Hg with a heart rate of 98 beats per minute. ??? CONCLUSION: 1. No significant EKG changes with the LexiScan infusion. 2. No LexiScan induced chest pain or cardiac arrhythmia. 3. Normal blood pressure and heart rate response. 4. Sestamibi/sestamibi perfusion scan pending; see separate report. Electronically Signed On 04-25-2023 6:41:21 TAX AUDIT MANAGER by Corinne Santa M.D. [id number]
[2023-04-23] MEDS: regadenoson 0.4 Mg/5 ml Syringe IVP (09:46)
[2023-04-23 10:00] VITALS: BP 128/77; PULSE 97
== END 2023-04-23 07:38 | disposition home or self-care (01) ==
LOC: CDL 07:37
PROVIDERS: PCP Family Medicine; Visit Provider Nurse Practitioner Family
DX: I21.4 Non-ST elevation (NSTEMI) myocardial infarction (principal)
CPT/HCPCS: 36415; 78452; 93017; 96374; A9500; J2785

== ENCOUNTER 2023-05-29 20:00 | Outpatient (CLI) | payer BC, MEDICAID, SELFPAY | END 2023-05-29 20:01 | disposition home or self-care (01) | LOC: SLEEP 05-30 03:16 | PROVIDERS: PCP Family Medicine; Visit Provider Internal Medicine Pulmonary Disease | DX: G47.33 Obstructive sleep apnea (adult) (pediatric) (principal) | CPT/HCPCS: 95810 ==

== ENCOUNTER → 2023-07-31 11:48 | Outpatient (BNVA) | payer BC, MEDICAID, SELFPAY | PROVIDERS: PCP Family Medicine; Visit Provider Nurse Practitioner Family | DX: E78.5 Hyperlipidemia, unspecified; I21.4 Non-ST elevation (NSTEMI) myocardial infarction; I25.119 Atherosclerotic heart disease of native coronary artery with unspecified angina pectoris; E04.2 Nontoxic multinodular goiter | CPT/HCPCS: 36415; 80061; 83036; 84439; 84443 ==

== ENCOUNTER 2023-08-09 09:51 | Outpatient (CLI) | payer BC, MEDICAID, SELFPAY ==
--- NOTE | 2023-08-09 10:15 | US_ITS ---
WS: [id number] ULTRASOUND THYROID TECHNIQUE: Ultrasound of the thyroid. CLINICAL INFORMATION: multiple thyroid nodules COMPARISON: None. FINDINGS: Thyroid: Right and left thyroid lobes are normal in size and echotexture. RIGHT: Cystic lesion measuring 6 x 6 x 7 mm RIGHT upper thyroid pole with a tiny amount of internal debris a nd additional simple appearing cyst inferior RIGHT thyroid measuring 6 x 6 x 3 mm. LEFT: Small incidental cyst LEFT upper thyroid measuring 5 x 3 x 4 mm Additional simple cyst measuring 4 x 2.5 mm superior thyroid near the isthmus Right thyroid lobe: 4.6 cm x 1.4 cm x 1.8 cm Left thyroid lobe: 4.5 cm x 1.7 cm x 1.7 cm. Isthmus: 0.2 mm. Cervical lymphadenopathy: None. IMPRESSION: 1. Bilateral cystic thyroid lesions largest RIGHT upper pole with a small septation/internal debris m easuring 6 x 6 x 7 mm. TIRADS Category 1: Benign (total points = 0) No FNA 2. Remainder of the cysts have a simple appearance.
== END 2023-08-09 09:52 | disposition home or self-care (01) ==
LOC: RAD 09:52
PROVIDERS: PCP Family Medicine; Visit Provider Internal Medicine
DX: E04.2 Nontoxic multinodular goiter (principal)
CPT/HCPCS: 76536

== ENCOUNTER 2023-12-20 09:26 | Outpatient (CLI) | payer BC, MEDICAID, SELFPAY ==
--- NOTE | 2023-12-20 10:00 | CT_ITS ---
WS: [id number] LDCT LUNG CANCER SCREENING HISTORY: Cancer Screen TECHNIQUE: Axial imaging performed from the apices to 1 cm below the costophrenic angles. Coronal and sagittal reformats are submitted with axial MIP series. All CT scans at [facility] use at least one of these dose optimization techniques: automated exposure control; mA and/or kV adjustment per patient size (includes targeted exams where dose is matched to clinical indication); or iterativ e reconstruction. DLP: 82.07 mGy.cm DIvol: Mean CTDIvol: 1.70 (mGy) COMPARISON: 12/17/2022 Diagnostic quality: Satisfactory Lungs: Mild hazy attenuation throughout both lungs is probably related to smoking history and poor in spiratory effort. There is also mild breathing motion artifact. No mass or nodules are identified. No endobronchial lesions. Heart: Heart is slightly enlarged. There is a small pericardial effusion versus pericardial thickenin g. Coronary artery calcification versus stent in the LAD.. Other findings: Small hiatal hernia. No adenopathy. No adrenal mass. Very minimal atherosclerosis aor ta. No chest wall abnormality. There is a small mass in the RIGHT breast. This was also present on pr ior studies. Prior mammograms described fibroadenoma in this location and the size on 03/09/2016. CT/CT lung screening [id number] IMPRESSION: LUNG-RADS: 1-Negative FOLLOW UP: 12 Month: Continue annual screening with LDCT OTHER FINDINGS (S MODIFIER): None.
== END 2023-12-20 09:27 | disposition home or self-care (01) ==
LOC: RAD 09:27
PROVIDERS: PCP Family Medicine; Visit Provider Internal Medicine Pulmonary Disease
DX: Z12.2 Encounter for screening for malignant neoplasm of respiratory organs (principal); F17.210 Nicotine dependence, cigarettes, uncomplicated; I51.7 Cardiomegaly; K44.9 Diaphragmatic hernia without obstruction or gangrene; N63.10 Unspecified lump in the right breast, unspecified quadrant
CPT/HCPCS: 71271

== ENCOUNTER 2024-10-21 09:41 | Outpatient (CLI) | payer BC, MEDICAID, SELFPAY ==
[2024-10-21 10:48] LABS: Free T4 Free Thyroxine 1.04 ng/dL (0.82-1.77); Thyroid Stimulating Hormone 2.93 uIU/mL (0.27-4.20)
== END 2024-10-21 09:42 | disposition home or self-care (01) ==
PROVIDERS: Internal Medicine; PCP Family Medicine; Visit Provider Nurse Practitioner Family
DX: E04.2 Nontoxic multinodular goiter (principal)
CPT/HCPCS: 84439; 84443

== ENCOUNTER → 2025-02-08 07:52 | Outpatient (BNVA) | payer MEDICAID, SELFPAY | PROVIDERS: PCP Family Medicine; Visit Provider Internal Medicine | DX: R22.2 Localized swelling, mass and lump, trunk (principal); E04.2 Nontoxic multinodular goiter; R53.83 Other fatigue; I25.119 Atherosclerotic heart disease of native coronary artery with unspecified angina pectoris; K21.9 Gastro-esophageal reflux disease without esophagitis; N63.0 Unspecified lump in unspecified breast | CPT/HCPCS: 99214 ==

== ENCOUNTER → 2025-02-16 15:00 | Outpatient (BNVA) | payer MEDICAID, SELFPAY | PROVIDERS: PCP Family Medicine; Visit Provider Internal Medicine | DX: I25.10 Atherosclerotic heart disease of native coronary artery without angina pectoris (principal); E78.5 Hyperlipidemia, unspecified; I10 Essential (primary) hypertension; F17.218 Nicotine dependence, cigarettes, with other nicotine-induced disorders | CPT/HCPCS: 99213 ==

== ENCOUNTER 2025-02-23 08:44 | Outpatient (CLI) | payer MEDICAID, SELFPAY ==
--- NOTE | 2025-02-23 09:00 | US_ITS ---
WS: [id number] THYROID ULTRASOUND HISTORY: Thyroid nodules COMPARISON: 08/09/2023 Right lobe: 1.5 cm x 1.2 cm x 5.1 cm (w x ap x l). Volume: 4.2 cm3. Normal sized gland. Cystic nodule with minimal debris in the superior pole measures 0.8 x 0.4 x 0.9 cm. No solid nodule or new nodule. No echogenic foci within the RIGHT thyroid. Left lobe: 1.9 cm x 1.0 cm x 4.5 cm (w x ap x l). Volume: 4.2 cm3. Normal sized thyroid. Very small superficial colloid nodule or cyst in the superior pole measures 0.5 x 0.2 x 0.3 cm. No solid mass. Isthmus: 0.2 cm. US/US thyroid [id number] IMPRESSION: 1. TI-RADS 2; no suspicious nodules. No FNA or follow-up necessary. 2. Normal sized gland.
[2025-02-23 10:08] LABS: Cholesterol 111 mg/dL (0-200); HDL Cholesterol 31 mg/dL (60-100); Triglycerides 133 mg/dL (0-150)
== END 2025-02-23 08:45 | disposition home or self-care (01) ==
PROVIDERS: Absent Provider Internal Medicine; PCP Family Medicine; Visit Provider Internal Medicine
DX: E78.5 Hyperlipidemia, unspecified (principal); E04.2 Nontoxic multinodular goiter
CPT/HCPCS: 76536; 80061